=== PATIENT | male | born 1950 ===

== ENCOUNTER 2016-11-17 17:46 | Observation (INO) | payer OTHER ==
[2016-11-17 17:46] VITALS: BMI 26.8
--- NOTE | 2016-11-17 19:24 | C.PDOC ---
History Of Present Illness The patient, a 66 y/o male, presents to the ED for evaluation of dizziness which has been occurring in intermittent episodes for around 1 month. He describes his symptoms as lightheadedness that is associated with blurry vision. Patient notes his symptoms are worse during the afternoon. He denies fever, chills, LOC, chest pain, palpitation, upper/lower extremity numbness/ weakness. Chief Complaint (Nursing): Dizziness/Lightheaded History Per: Patient History/Exam Limitations: no limitations Onset/Duration Of Symptoms: Intermittent Episodes (around 1 month ) Current Symptoms Are (Timing): Still Present Fall Associated With With Symptoms: No Additional History Per: Patient Past Medical History Reviewed: Historical Data, Nursing Documentation, Vital Signs Vital Signs: Last Vital Signs Temp 98 F 11/17/16 18:03 Pulse 86 11/17/16 18:03 Resp 18 11/17/16 18:03 BP 168/88 H 11/17/16 18:03 Pulse Ox 99 11/17/16 22:38 - Medical History PMH: No Chronic Diseases Surgical History: No Surg Hx - [facility] Procedures COLONOSCOPY (02/14/14) Family History: States: Unknown Family Hx - Social History Hx Alcohol Use: Yes Hx Substance Use: No Review Of Systems Except As Marked, All Systems Reviewed And Found Negative. Constitutional: Negative for: Fever, Chills Eyes: Positive for: Vision Change (blurry vision ) Cardiovascular: Negative for: Chest Pain, Palpitations Neurological: Positive for: Headache, Other (+lightheadedness. no LOC ). Negative for: Weakness, Numbness Physical Exam - Physical Exam Appears: Non-toxic, No Acute Distress Skin: Normal Color, Warm, Dry Head: Atraumatic, Normacephalic, No Tenderness, No Swelling, No Abrasion, No Laceration Eye(s): bilateral: Normal Inspection, PERRL, EOMI Ear(s): Bilateral: Normal Nose: Normal, No Discharge Oral Mucosa: Moist Throat: Normal, No Erythema, No Exudate Neck: Normal ROM, Supple Chest: Symmetrical, No Deformity, No Tenderness Cardiovascular: Rhythm Regular, No Murmur Respiratory: Normal Breath Sounds, No Rales, No Rhonchi, No Wheezing Back: Normal Inspection, No Vertebral Tenderness, No Paraspinal Tenderness Extremity: Normal ROM, Capillary Refill (less than 2 seconds ) Neurological/Psych: Oriented x3, Normal Speech, Normal Cognition, Other (no focal deficits ) Gait: Steady ED Course And Treatment - Laboratory Results Result Diagrams: 11/17/16 19:21 11/17/16 19:21 ECG: Interpreted By Me ECG Rhythm: Sinus Rhythm ECG Interpretation: Normal, No Acute Changes Interpretation Of ECG: NSR, normal tracings. Rate From EC O2 Sat by Pulse Oximetry: 99 (on RA) Pulse Ox Interpretation: Normal - CT Scan/US CT Head Other Rad Studies (CT/US): Interpreted By Me, Read By Radiologist, Radiology Report Reviewed CT/US Interpretation: EXAM: CT Head Without Intravenous Contrast. CLINICAL HISTORY: 66 years old, male; Condition or disease; Headache. TECHNIQUE: Axial computed tomography images of the head/brain without intravenous contrast. This CT exam. was performed using one or more of the following dose reduction techniques: automated exposure. control, adjustment of the mA and/or kV according to patient size, and/or use of iterative. reconstruction technique. COMPARISON: No relevant prior studies available. FINDINGS: Brain : Periventricular and subcortical hypodensities are nonspecific and could reflect chronic. microvascular ischemic changes. Mild brain volume loss. No hemorrhage. Ventricles: Unremarkable. No ventriculomegaly. Bones/joints: Unremarkable. No acute fracture. Soft tissues: Unremarkable. Vasculature: Calcific atherosclerosis of the bilateral carotid siphon. Sinuses: Unremarkable as visualized. No acute sinusitis. Mastoid air cells: Unremarkable as visualized. No mastoid effusion. IMPRESSION: No acute findings. Progress Note: Labs, EKG, CT Head ordered and reviewed. - Physician Consult Information Time Consulting Physician Contacted: 21:30 Physician Contacted: Mario Marquez Outcome Of Conversation: admit to observation NIHSS Stroke Scale - Date/Time Evaluation Performed Date Performed: 11/17/16 When Was NIHSS Performed: Baseline - How Severe is the Stoke Level of Consciousness: 0=Alert LOC to Questions: 0=Both comments correct LOC to commands: 0=Obeys both correctly Best Gaze: 0=Normal Visual: 0=No visual loss Facial: 0=Normal Motor Arm - Left: 0=No drift Motor Arm - Right: 0=No drift Motor Leg - Left: 0=No drift Motor Leg - Right: 0=No drift Limb Ataxia: 0=Absent Sensory: 0=Normal Best Language: 0=No aphasia Dysarthia: 0=Normal articulation Extinction & Inattention (Neglect): 0=Normal, no object Score: 0 Severity Of Stroke: 0= No Stroke Disposition Discussed With : Mario Marquez Doctor Will See Patient In The: Hospital Counseled Patient/Family Regarding: Diagnosis - Disposition Disposition: HOSPITALIZED Disposition Time: 21:30 Condition: STABLE - POA Present On Arrival: None - Clinical Impression Clinical Impression: Near syncope, Near syncope - Scribe Statement The provider has reviewed the documentation as recorded by the Scribe (Carla Appiah) Provider Attestation: All medical record entries made by the Scribe were at my direction and personally dictated by me. I have reviewed the chart and agree that the record accurately reflects my personal performance of the history, physical exam, medical decision making, and the department course for this patient. I have also personally directed, reviewed, and agree with the discharge instructions and disposition.
[2016-11-17 19:29] LABS: BASO % 0.9 % (0.0-2.0); EOS # 0.2 K/uL (0.0-0.7); EOS % 4.2 % (0.0-4.0); LYMPH # 1.5 K/uL (1.0-4.3); LYMPH % 27.6 % (20.0-40.0); MEAN CELL VOLUME 86.7 fL (80.0-94.0); MEAN CORPUSCULAR HEMOGLOBIN 29.1 pg (27.0-31.0); MEAN CORPUSCULAR HGB CONC 33.5 g/dL (33.0-37.0); MEAN PLATELET VOLUME 8.5 fL (7.2-11.7); MONO # 0.4 K/uL (0.0-0.8); MONO % 8.2 % (0.0-10.0); RED CELL DISTRIBUTION WIDTH 12.9 % (11.5-14.5); WHITE BLOOD COUNT 5.3 K/uL (4.8-10.8)
[2016-11-17 19:40] LABS: CHLORIDE 95 mmol/L (98-107); POTASSIUM 3.6 mmol/L (3.6-5.2); SODIUM 135 mmol/L (132-148)
[2016-11-17 19:42] LABS: ALB/GLOB RATIO 1.5 (1.0-2.1); AST/SGOT 22 U/L (17-59); BILIRUBIN,TOTAL 0.6 mg/dL (0.2-1.3); CARBON DIOXIDE 26 mmol/L (22-30); GFR AFRICAN-AMERICAN > 60; TOTAL PROTEIN 6.8 g/dL (6.3-8.3)
[2016-11-17 19:43] LABS: ALKALINE PHOSPHATASE 46 U/L (38-126); ALT/SGPT 29 U/L (21-72); BLOOD UREA NITROGEN 15 mg/dL (9-20); CALCIUM 8.6 mg/dl (8.6-10.4); GLUCOSE,RANDOM 178 mg/dL (75-110)
[2016-11-18 01:42] VITALS: RESP 20
[2016-11-18] MEDS: (Novolog) Insulin Aspart, Recombinant 100 u/ml 10 ml vial SC SCH ×4 (08:45→22:28)
--- NOTE | 2016-11-18 09:12 | CT ---
PROCEDURE: CT HEAD WITHOUT CONTRAST. HISTORY: Headache COMPARISON: None available. TECHNIQUE: Axial computed tomography images were obtained through the head/brain without intravenous contrast. Radiation dose: Total exam DLP = seven hundred ninety-five mGy-cm. This CT exam was performed using one or more of the following dose reduction techniques: Automated exposure control, adjustment of the mA and/or kV according to patient size, and/or use of iterative reconstruction technique. FINDINGS: HEMORRHAGE: No intracranial hemorrhage. BRAIN: Mild brain volume loss. Scattered focal lucencies in the subcortical and periventricular white matter suggestive for chronic microvascular ischemic change. Right basal ganglia calcification. Focal hypodensity in the right frontal subcortical white matter is also suggestive for chronic microvascular ischemic change. VENTRICLES: Unremarkable. No hydrocephalus. CALVARIUM: Unremarkable. PARANASAL SINUSES: Unremarkable as visualized. No significant inflammatory changes. MASTOID AIR CELLS: Unremarkable as visualized. No inflammatory changes. OTHER FINDINGS: Calcific atherosclerosis of the bilateral carotid siphon. IMPRESSION: No acute intracranial abnormalities. If focal neurologic deficit persists, consider MRI. These findings were preliminarily reported at 8:23 p.m. on 11/17/[address] Jesse Mckenna from [facility].
[2016-11-18 09:37] LABS: THYROID STIMULATING HORMONE 3.49 mIU/L (0.46-4.68)
[2016-11-18] MEDS ORDERED: Tuberculin 5 Units/0.1 ml Inj ID ONE (10:00)
[2016-11-18] MEDS: Enoxaparin 40 mg Syringe SC SCH (12:30)
[2016-11-18] MEDS ORDERED: Gadodiamide 287 MG/ML VIAL (15ML) IV ONE (13:42)
--- NOTE | 2016-11-18 14:26 | CON ---
DATE: 11/18/2016 REASON FOR CONSULTATION: Recurrent dizziness. HISTORY OF PRESENT ILLNESS: The patient is a 66-year-old [place] male who has history of diabetes rg litus and is unaware of any prior cardiac history. The patient presents because of lightheadedness a ssociated with blurry vision. The patient denies any imbalance or falls. He denies any speech diffi culty. The patient is unaware of any prior cardiac history in the past. SOCIAL HISTORY: The patient is a nonsmoker. He is an occasional drinker. PAST MEDICAL HISTORY: History of diabetes mellitus for the past 3 years, history of hypertension. HOME MEDICATIONS: The patient at home is on metformin 500 mg twice a day, losartan/hydrochlorothiazi de 50/12.5 mg daily. CURRENT HOSPITAL MEDICATIONS: Include meclizine 12.5 mg t.i.d., Lovenox 40 mg subcutaneous once a da y, Plavix 75 mg once a day, thiamine 100 mg once a day. REVIEW OF SYSTEMS: No nausea, vomiting, fever or chills. No headache, no speech difficulty. No arm or leg numbness. PHYSICAL EXAMINATION: GENERAL: The patient is an elderly male who does not appear to be in any distress. VITAL SIGNS: Blood pressure is 160/89, heart rate 73, temperature 97.6, respiration 20. HEENT: Normocephalic. NECK: No JVD. CHEST: Clear. HEART: S1, S2 regular. ABDOMEN: Soft. EXTREMITIES: No edema. LABORATORY DATA: SMA-7: Sodium 135, potassium 3.6, chloride 95, CO2 of 26, glucose 78, BUN 15, crea tinine 1.1. One set of troponins is negative. TSH level is within normal limits. CBC: WBC 5.3, he moglobin 12.1, hematocrit 36, platelet count 245,000. DIAGNOSTIC STUDIES: Head CT scan without contrast was unremarkable. Brain MRI was performed; the re port is still pending. EKG revealed normal sinus rhythm at rate of 80. ASSESSMENT: 1. Recurrent dizziness. 2. Hypertension. 3. Diabetes mellitus. 4. History of ETOH abuse. RECOMMENDATIONS: Continue current subcutaneous Lovenox 40 mg once a day, meclizine 12.5 mg t.i.d., P lavix 75 mg once a day, thiamine 100 mg once a day. I will review the echocardiographic study perfor med today. Obtain a followup brain MRI as well as carotid Doppler. Grzegorz Whittington MD cc: [id number] TT: 11/18/2016 14:26:00 Confirmation # [id number] Dictation # [id number] dn
--- NOTE | 2016-11-18 15:43 | CARD ---
APPROVED REPORT EXAM: Two-dimensional and M-mode echocardiogram with Doppler and color Doppler. Other Information Quality : GoodRhythm : INDICATION Dizziness and Vertigo Syncope RISK FACTORS Hypertension Diabetes M-Mode DIMENSIONS RVDd2.93 (2.1-3.2cm)Left Atrium (MM)3.38 (2.5-4.0cm) IVSd0.88 (0.7-1.1cm)Aortic Root2.67 (2.2-3.7cm) LVDd3.71 (4.0-5.6cm)Aortic Cusp Exc.1.92 (1.5-2.0cm) PWd0.81 (0.7-1.1cm)FS (%) 46 % LVDs2.02 (2.0-3.8cm)LVEF (%)78 (>50%) Mitral Valve MV E Nmuyxcve74.2cm/sMV A Ohtbqeav92.0cm/sE/A ratio0.8 TDI E/Lateral E'0.0E/Medial E'0.0 Tricuspid Valve TR Peak Hewmqbgs505pg/sTR Peak Gr.35hwGfHDAX31wvYs LEFT VENTRICLE The left ventricle is normal size. There is borderline concentric left ventricular hypertrophy. The left ventricular function is normal. The left ventricular ejection fraction is within the normal range. There is normal LV segmental wall motion. Transmitral Doppler flow pattern is Grade I-abnormal relaxation pattern. RIGHT VENTRICLE The right ventricle is normal size. There is normal right ventricular wall thickness. The right ventricular systolic function is normal. ATRIA The left atrium size is normal. The right atrium size is normal. AORTIC VALVE The aortic valve is normal in structure. MITRAL VALVE The mitral valve is mildly thickened. Mitral regurgitation is trace. TRICUSPID VALVE There is no tricuspid valve regurgitation noted. PULMONIC VALVE There is trace pulmonic valvular regurgitation. GREAT VESSELS The aortic root is normal in size. PERICARDIAL EFFUSION There is a trace loculated anterior pericardial effusion. <Conclusion> The left ventricle is normal size. There is borderline concentric left ventricular hypertrophy. The left ventricular function is normal. The left ventricular ejection fraction is within the normal range. There is normal LV segmental wall motion. Transmitral Doppler flow pattern is Grade I-abnormal relaxation pattern.
--- NOTE | 2016-11-18 16:05 | MRI ---
PROCEDURE: MRI BRAIN WITH AND WITHOUT CONTRAST HISTORY: brain stem stroke Vs mass COMPARISON: Comparison is made to the previous study dated 01/28/2015 TECHNIQUE: Multiplanar, multisequence MR images of the brain were obtained with and without intravenous contrast enhancement. FINDINGS: HEMORRHAGE: None DWI: No evidence of an acute or early subacute infarction. BRAIN PARENCHYMA: No mass,mass effect or edema. Moderate white matter changes are again suggestive of chronic microvascular ischemic disease. Mild atrophy is also noted. ENHANCEMENT: No abnormal intracranial enhancement. VENTRICLES: Unremarkable. No hydrocephalus. CRANIUM: Unremarkable. ORBITS: Grossly unremarkable. PARANASAL SINUSES/MASTOIDS: Clear VASCULAR SYSTEM: Skull base flow voids intact. OTHER FINDINGS: None . IMPRESSION: No evidence of acute or subacute infarct. No evidence of enhancing mass lesion mass effect or midline shift. Re- demonstration of moderate chronic microvascular white matter ischemic disease.
[2016-11-18 16:21] LABS: ALB/GLOB RATIO 1.6 (1.0-2.1); TOTAL PROTEIN 6.7 g/dL (6.3-8.3)
--- NOTE | 2016-11-18 16:43 | CARD ---
APPROVED REPORT EKG Measurement Heart [id number] <Conclusion> Normal sinus rhythm Normal ECG
--- NOTE | 2016-11-18 21:59 | VASCLAB ---
PROCEDURE: HISTORY: R?O Stenosis COMPARISON: None available. TECHNIQUE: Grayscale and duplex Doppler evaluation of the cervical carotid and vertebral arteries were performed. The common carotid, carotid bifurcations and cervical Internal Carotid Artery (ICA) and proximal External Carotid Artery (ECA) were evaluated. The vertebral arteries were evaluated for gross patency and flow direction. Report prepared by Martin Garrido, BS, RVT FINDINGS: RIGHT CAROTID ARTERIES: 1. Common Carotid Artery: No significant focal plaque formation of the right common carotid artery. Maximum Peak Systolic velocity: 72 cm/sec: End-diastolic velocity 12 cm/sec. 2. Carotid Bifurcation: Mild heterogeneous plaque formation. Maximum Peak Systolic velocity: 65 cm/sec: End-diastolic velocity 12 cm/sec. 3. Internal Carotid Artery: Minimal eccentric heterogeneous plaque. 3.1. Proximal Segment: Peak systolic velocity 70 cm/sec: End-diastolic velocity 18 cm/sec - % stenosis 0-15% 3.2. Middle Segment: Peak systolic velocity 129 cm/sec: End-diastolic velocity 30 cm/sec - % stenosis 0-15% 3.3. Distal Segment: Peak systolic velocity 107 cm/sec: End-diastolic velocity 33 cm/sec - % stenosis 0-15% 4. External Carotid Artery: No significant focal plaque formation. Peak systolic velocity 161 cm/sec 5. ICA/CCA Ratio: 1.8 LEFT CAROTID ARTERIES: 1. Common Carotid Artery: No significant focal plaque formation of the left common carotid artery. Maximum Peak Systolic velocity: 90 cm/sec: End-diastolic velocity 16 cm/sec. 2. Carotid Bifurcation: Minimal calcific plaque formation. Maximum Peak Systolic velocity: 93 cm/sec: End-diastolic velocity 16 cm/sec. 3. Internal Carotid Artery: Mild heterogeneous plaque. Tortuous course. 3.1. Proximal Segment: Peak systolic velocity 85 cm/sec: End-diastolic velocity 20 cm/sec - % stenosis 0-15% 3.2. Middle Segment: Peak systolic velocity 56 cm/sec: End-diastolic velocity 14 cm/sec - % stenosis 0-15% 3.3. Distal Segment: Peak systolic velocity 103 cm/sec: End-diastolic velocity 69 cm/sec - % stenosis 0-15% 4. External Carotid Artery: No significant focal plaque formation. Peak systolic velocity 143 cm/sec 5. ICA/CCA Ratio: 1.1 VERTEBRAL ARTERIES: 1. Right Vertebral Artery: The right vertebral artery flow direction is antegrade. 2. Left Vertebral Artery: The left vertebral artery flow direction is antegrade. OTHER FINDINGS: 1. Right Brachial Blood pressure: 148 mmHg. 2. Left Brachial Blood pressure: 148 mmHg. IMPRESSION: RIGHT: Duplex scan does not suggest hemodynamically significant stenosis of the right extracranial carotid arteries. LEFT: Duplex scan does not suggest hemodynamically significant stenosis of the left extracranial carotid arteries.
[2016-11-18] MEDS ORDERED: Latanoprost 2.5 ml Opht Soln OU SCH (22:00)
--- NOTE | 2016-11-19 01:33 | CP.PCM.HP ---
History of Present Illness - History of Present Illness History of Present Illness: The patient, a 66 y/o male, presents to the ED for evaluation of dizziness which has been occurring in intermittent episodes for around 1 month. He describes his symptoms as lightheadedness that is associated with blurry vision. Patient notes his symptoms are worse during the afternoon. He denies fever, chills, LOC, chest pain, palpitation, upper/lower extremity numbness/ weakness. Present on Admission - Present on Admission Any Indicators Present on Admission: No Past Patient History - Past Medical History & Family History Past Medical History?: Yes - Past Social History Smoking Status: Never Smoked - CARDIAC Hx Cardiac Disorders: No - PULMONARY Hx Respiratory Disorders: No - NEUROLOGICAL Hx Neurological Disorder: No - HEENT Hx HEENT Problems: Yes Hx Glaucoma: Yes - RENAL Hx Chronic Kidney Disease: No - ENDOCRINE/METABOLIC Hx Endocrine Disorders: Yes Hx Diabetes Mellitus Type 1: Yes - HEMATOLOGICAL/ONCOLOGICAL Hx Blood Disorders: No - INTEGUMENTARY Hx Dermatological Problems: No - MUSCULOSKELETAL/RHEUMATOLOGICAL Hx Musculoskeletal Disorders: No Hx Falls: No - GASTROINTESTINAL Hx Gastrointestinal Disorders: No - GENITOURINARY/GYNECOLOGICAL Hx Genitourinary Disorders: No - PSYCHIATRIC Hx Substance Use: No - SURGICAL HISTORY Hx Surgeries: Yes Hx Musculoskeletal Surgery: Yes (1985 DISLOCATED LEFT HIP) - ANESTHESIA Hx Anesthesia: Yes Hx Anesthesia Reactions: No Hx Malignant Hyperthermia: No Meds Home Medications: Home Medication List Medication Instructions Recorded Confirmed Type Meclizine [Antivert] 12.5 mg PO TID PRN #30 tab 11/19/16 Rx Allergies/Adverse Reactions: Allergies Allergy/AdvReac Type Severity Reaction Status Date / Time No Known Allergies Allergy Verified 02/14/14 10:40 Results - Vital Signs Recent Vital Signs: Last Vital Signs Temp 98.1 F 11/18/16 23:45 Pulse 84 11/18/16 23:45 Resp 20 11/18/16 23:45 BP 120/74 11/18/16 23:45 Pulse Ox 97 11/18/16 23:45 - Labs Result Diagrams: 11/17/16 19:21 11/17/16 19:21 Labs: Laboratory Results - last 24 hr 11/18/16 11/18/16 11/18/16 06:43 08:42 12:38 ESR POC Glucose (mg/dL) 124 H 164 H Hemoglobin A1c Total Bilirubin Direct Bilirubin AST ALT Alkaline Phosphatase Ammonia Total Creatine Kinase 39 L CK-MB (Mass) 0.37 Troponin I, Quant < 0.0120 Total Protein Albumin Globulin Albumin/Globulin Ratio Triglycerides Cholesterol LDL Cholesterol Direct HDL Cholesterol Vitamin B12 Free T4 Total T3 TSH 3rd Generation 3.49 Prolactin RPR 11/18/16 11/18/16 11/18/16 15:51 15:51 15:51 ESR 9 POC Glucose (mg/dL) Hemoglobin A1c 6.2 Total Bilirubin 0.0 L Direct Bilirubin 0.0 AST 21 ALT 34 Alkaline Phosphatase 54 Ammonia Total Creatine Kinase CK-MB (Mass) Troponin I, Quant Total Protein 6.7 Albumin 4.2 Globulin 2.6 Albumin/Globulin Ratio 1.6 Triglycerides 382 H Cholesterol 143 LDL Cholesterol Direct 70 HDL Cholesterol 35 Vitamin B12 306 Free T4 Total T3 1.35 L TSH 3rd Generation Prolactin 9.0 RPR 11/18/16 11/18/16 11/18/16 15:51 15:51 16:49 ESR POC Glucose (mg/dL) 158 H Hemoglobin A1c Total Bilirubin Direct Bilirubin AST ALT Alkaline Phosphatase Ammonia < 9 L Total Creatine Kinase CK-MB (Mass) Troponin I, Quant Total Protein Albumin Globulin Albumin/Globulin Ratio Triglycerides Cholesterol LDL Cholesterol Direct HDL Cholesterol Vitamin B12 Free T4 Total T3 TSH 3rd Generation Prolactin RPR Nonreactive 11/18/16 17:25 ESR POC Glucose (mg/dL) Hemoglobin A1c Total Bilirubin Direct Bilirubin AST ALT Alkaline Phosphatase Ammonia Total Creatine Kinase CK-MB (Mass) Troponin I, Quant Total Protein Albumin Globulin Albumin/Globulin Ratio Triglycerides Cholesterol LDL Cholesterol Direct HDL Cholesterol Vitamin B12 Free T4 1.32 Total T3 TSH 3rd Generation Prolactin RPR
[2016-11-19] MEDS: (Novolog) Insulin Aspart, Recombinant 100 u/ml 10 ml vial SC SCH ×3 (08:30→16:25)
--- NOTE | 2016-11-19 08:44 | RAD ---
Chest x-ray two views History: Cough. Comparison: None available. Findings: Biapical pleural thickening with upper lobe granulomatous changes. Hyperinflation suggestive for COPD and or emphysematous changes. Bilateral hilar prominence. Cardiomegaly. Calcification at the aortic knob. Degenerative changes in the spine and shoulders. Impression: Chronic changes.
--- NOTE | 2016-11-19 09:11 | CON ---
DATE: 11/19/2016 ATTENDING PHYSICIAN: Mario Marquez MD NEUROLOGICAL CONSULTATION: For dizziness. CHIEF COMPLAINT: The patient was brought into [facility] for a history of recurrent dizziness. From neurological point of view, I was called in to evaluate him for further management. HISTORY OF PRESENTING ILLNESS: The patient is a 66-year-old, right-handed, retired male [facility] with recurrent episode of dizziness. No history of fall. No history of loss of consciousness, no history of involuntary movements. No history of headache, visual or bulbar dysfunction. PAST MEDICAL HISTORY: Hypertension, dyslipidemia, history of prostate problem in the past. PERSONAL HISTORY: Denies smoking. Social use of alcohol. REVIEW OF SYSTEMS: As per H and P. MEDICATIONS: Meclizine, insulin, clopidogrel, thiamine and Xalatan ophthalmic drops. PHYSICAL EXAMINATION: VITAL SIGNS: Blood pressure 120/74, mean arterial pressure of 89, respiratory rate 16, temperature a febrile. NECK: Supple. No carotid bruit. HEART SOUNDS: Regular. CHEST: Fair air entry. EXTREMITIES: No edema in legs. NEUROLOGIC: The patient is awake, alert, oriented to person, place, and time. Speech is clear. Nam ing, repetition, fluency, comprehension all within normal. CRANIAL NERVES: Visual field intact. Pupils reactive to light. Extraocular movements normal. No ny stagmus. No facial sensory deficit, no facial asymmetry. Hearing is normal. Tongue is midline. Go od gag. MOTOR: On outstretched hand with eyes closed, no drift noted. Power is symmetric on either side. DEEP TENDON REFLEXES: Biceps, brachioradialis, triceps 1+ on either side. Both knees are absent, skylar th ankles are absent. Plantars are downgoing. 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 GAIT: Normal. COORDINATION: Dptclb-bwth-vattgc test is intact. CONCLUSION: Upon reviewing his history and neurological examination, the patient is presenting with nonfocal, no long tract sign. However, he is presenting with bilateral dissymmetric sensorimotor dayne ropathy secondary to his diabetes mellitus. The patient can be treated symptomatically for his dizziness at present. WORKUP: ESR 9. Glucose 143. Hemoglobin A1c 6.2. Liver functions normal. Ammonia is less than 9. RPR not reactive. TSH 1.35. B12 306. Cholesterol 143, LDL 70, HDL 35. MRI of the brain: No acut e pathologies noted. Carotid Doppler: No acute stenosis. As recommended, patient can continue Plavix as well as antihypertensive medication. The patient can be followed as outpatient. Bennie Larios MD cc: [id number] TT: 11/19/2016 09:11:36 Confirmation # [id number] Dictation # [id number]
[2016-11-19] MEDS: Enoxaparin 40 mg Syringe SC SCH (09:19)
[2016-11-19 15:52] VITALS: BP 153/63; PULSE 87; TEMP 97.9; O2SAT 96
--- NOTE | 2016-11-19 16:21 | PN ---
DATE: 11/19/2016 SUBJECTIVE: The patient denies any dizziness or palpitation. No reported arrhythmia. PHYSICAL EXAMINATION: VITAL SIGNS: Blood pressure 153/63, heart rate 87, temperature 97.9 and respirations 20. HEENT: Normocephalic. NECK: No JVD. CHEST: Clear. HEART: S1, S2 regular. LABORATORY DATA: Today's glucose levels are 143 and 173. RPR is nonreactive. Carotid Doppler does not suggest hemodynamically significant stenosis bilaterally. Brain MRI: No evidence of acute or jose bacute infarct. Echocardiographic study revealed borderline concentric LVH with normal systolic func tion and normal segmental wall motion and grade I abnormal relaxation pattern. ASSESSMENT: 1. Recurrent dizziness. 2. Uncontrolled diabetes mellitus. 3. Ethanol abuse. RECOMMENDATIONS: Continue current Plavix 75 mg once a day, Lovenox 40 mg once a day and thiamine 100 mg once a day. Consider 24-hour Holter monitor study as an outpatient. Grzegorz Whittington MD cc: [id number] TT: 11/19/2016 16:20:28 Confirmation # [id number] Dictation # [id number]
[2016-11-20] MEDS ORDERED: Pneumococcal 23-Valent Vaccine IM ONE (10:00)
--- NOTE | 2016-11-20 15:58 | CP.PCM.DIS ---
Provider - Provider Date of Admission: 11/17/16 21:32 Attending physician: Mario Marquez MD Time Spent in preparation of Discharge (in minutes): 30 Hospital Course - Lab Results Lab Results: Most Recent Lab Values WBC 5.3 K/uL (4.8-10.8) 11/17/16 19:21 RBC 4.15 Mil/uL (4.40-5.90) L 11/17/16 19:21 Hgb 12.1 g/dL (12.0-18.0) 11/17/16 19:21 Hct 36.0 % (35.0-51.0) 11/17/16 19: MCV 86.7 fL (80.0-94.0) 11/17/16 19: MCH 29.1 pg (27.0-31.0) 11/17/16 19: MCHC 33.5 g/dL (33.0-37.0) 11/17/16 19: RDW 12.9 % (11.5-14.5) 11/17/16 19: Plt Count 245 K/uL (130-400) 11/17/16 19:21 MPV 8.5 fL (7.2-11.7) 11/17/16 19:21 Neut % (Auto) 59.1 % (50.0-75.0) 11/17/16 19:21 Lymph % (Auto) 27.6 % (20.0-40.0) 11/17/16 19:21 [place] % (Auto) 8.2 % (0.0-10.0) 11/17/16 19: Eos % (Auto) 4.2 % (0.0-4.0) H 11/17/16 19:21 Baso % (Auto) 0.9 % (0.0-2.0) 11/17/16 19: Neut # 3.2 K/uL (1.8-7.0) 11/17/16 19: Lymph # 1.5 K/uL (1.0-4.3) 11/17/16 19:21 [place] # 0.4 K/uL (0.0-0.8) 11/17/16 19:21 Eos # 0.2 K/uL (0.0-0.7) 11/17/16 19:21 Baso # 0.0 K/uL (0.0-0.2) 11/17/16 19:21 ESR 9 mm/hr (0-15) 11/18/16 15:51 Sodium 135 mmol/L (132-148) 11/17/16 19:21 Potassium 3.6 mmol/L (3.6-5.2) 11/17/16 19:21 Chloride 95 mmol/L (98-107) L 11/17/16 19:21 Carbon Dioxide 26 mmol/L (22-30) 11/17/16 19:21 Anion Gap 17 (10-20) 11/17/16 19:21 BUN 15 mg/dL (9-20) 11/17/16 19:21 Creatinine 1.1 MG/DL (0.8-1.5) 11/17/16 19:21 Est GFR ( Amer) > 60 11/17/16 19:21 Est GFR (Non-Af Amer) > 60 11/17/16 19:21 POC Glucose (mg/dL) 121 mg/dL (65-110) H 11/19/16 16:17 Random Glucose 178 mg/dL (75-110) H 11/17/16 19:21 Hemoglobin A1c 6.2 % (4.2-6.5) 11/18/16 15:51 Calcium 8.6 mg/dl (8.6-10.4) 11/17/16 19:21 Total Bilirubin 0.0 mg/dL (0.2-1.3) L 11/18/16 15:51 Direct Bilirubin 0.0 mg/dL (0.0-0.4) 11/18/16 15:51 AST 21 U/L (17-59) 11/18/16 15:51 ALT 34 U/L (21-72) 11/18/16 15:51 Alkaline Phosphatase 54 U/L (38-126) 11/18/16 15:51 Ammonia < 9 umol/L (9-33) L 11/18/16 15:51 Total Creatine Kinase 39 U/L (55-170) L 11/18/16 08:42 CK-MB (Mass) 0.37 ng/mL (0.0-3.38) 11/18/16 08:42 Troponin I, Quant < 0.0120 ng/mL (0.00-0.120) 11/18/16 08:42 Total Protein 6.7 g/dL (6.3-8.3) 11/18/16 15:51 Albumin 4.2 g/dL (3.5-5.0) 11/18/16 15:51 Globulin 2.6 gm/dL (2.2-3.9) 11/18/16 15:51 Albumin/Globulin Ratio 1.6 (1.0-2.1) 11/18/16 15:51 Triglycerides 382 mg/dL (0-149) H 11/18/16 15:51 Cholesterol 143 mg/dL (0-199) 11/18/16 15:51 LDL Cholesterol Direct 70 mg/dL (0-129) 11/18/16 15:51 HDL Cholesterol 35 mg/dL (30-70) 11/18/16 15:51 Vitamin B12 306 pg/mL (239-931) 11/18/16 15:51 Free T4 1.32 ng/dL (0.78-2.19) 11/18/16 17:25 Total T3 1.35 nmol/L (1.49-2.60) L 11/18/16 15:51 TSH 3rd Generation 3.49 mIU/L (0.46-4.68) 11/18/16 08:42 Prolactin 9.0 ng/mL (3.7-17.9) 11/18/16 15:51 RPR Nonreactive (NONREACTIVE) 11/18/16 15:51 - Hospital Course Hospital Course: Pt seen and examined, cardiology evaluated, is clear for discharge, labs done and reviewed negative Discharge Exam - Eye Exam Eye Exam: EOMI, Normal appearance, PERRL Pupil Exam: NORMAL ACCOMODATION, PERRL - ENT Exam ENT Exam: Mucous Membranes Moist - Respiratory Exam Respiratory Exam: Clear to PA & Lateral, NORMAL BREATHING PATTERN - Cardiovascular Exam Cardiovascular Exam: REGULAR RHYTHM, +S1, +S2 - GI/Abdominal Exam GI & Abdominal Exam: Normal Bowel Sounds Discharge Plan - Discharge Medications Prescriptions: Meclizine [Antivert] 12.5 mg PO TID PRN #30 tab PRN Reason: Dizziness - Follow Up Plan Condition: STABLE Disposition: HOME/ ROUTINE Instructions: Meclizine (By mouth), Syncope (DC), Near Syncope (ED) Referrals: Mario Marquez MD [Staff Provider] -
--- NOTE | 2016-11-21 10:06 | EEG ---
DATE: 11/18/2016 This is a 16-channel electroencephalogram of awake and drowsy adult. During the study, photic stimulation was performed. Hyperventilation was not performed. The resting electroencephalogram consists of 20-30 microvolt, 9-12 Hz alpha activity seen at parietal and occipital leads. Anteriorly fast activity superimposed with 2-3 Hz delta activity seen. Intermittent movement artifact contaminated the background rhythm. However, the background alpha activity is well maintained throughout the study. The photic stimulation did not evoke driving response noted at 2-20 Hz. The EKG lead shows normal sinus rhythm throughout the recording time. IMPRESSION: This is a normal electroencephalogram of awake and drowsy adult. During the study, neither electroencephalographic paroxysmal activities nor focal slowing noted. Bennie Larios MD cc: [id number] TT: 11/21/2016 10:05:16 Confirmation # [id number] Dictation # [id number] MTDD
[2016-11-23 14:24] LABS: TSI <89 % baseline (<140)
== END 2016-11-19 18:10 | disposition home or self-care (01) ==
LOC: C.ER 17:46 → C.9E 21:32 → C.5T 22:22
PROVIDERS: ADMIT Internal Medicine; ATTEND Internal Medicine
DX: R55 Syncope and collapse (principal); H53.8 Other visual disturbances; I10 Essential (primary) hypertension; E78.5 Hyperlipidemia, unspecified
CPT/HCPCS: 36415; 70450; 70553; 71020; 80053; 80061; 80076; 82140; 82607; 82948; 83036; 84146; 84439; 84443; 84445; 84480; 84484; 85025; 85651; 86592; 93005; 93306; 93880; 95812; 96372; 97116; 97162; 99285; A9579; G0378; G8978; G8979; G8980; J1650

== ENCOUNTER 2017-09-16 08:11 | Inpatient (IN) | payer OTHER ==
[2017-09-16 08:11] VITALS: BMI 26.8
[2017-09-16] MEDS ORDERED: Morphine 4 MG/ML VIAL ONE (09:20)
--- NOTE | 2017-09-16 09:32 | RAD ---
PROCEDURE: Left Wrist Radiographs. HISTORY: fall COMPARISON: None. FINDINGS: BONES: There is an acute transverse impacted nondisplaced fracture in the distal radius without significant angulation. Bone alignment is normal. There is periarticular bone demineralization. JOINTS: The proximal and distal carpal rows are maintained. No dislocation. SOFT TISSUES: There is moderate dorsal soft tissue swelling. OTHER FINDINGS: None. IMPRESSION: Acute transverse impacted nondisplaced fracture in the distal radius with moderate dorsal soft tissue swelling.
--- NOTE | 2017-09-16 09:37 | RAD ---
PROCEDURE: CHEST RADIOGRAPH, 1 VIEW HISTORY: fall COMPARISON: 915. FINDINGS: LUNGS: The lungs are well inflated and clear. PLEURA: No pneumothorax or pleural fluid seen. CARDIOVASCULAR: The heart is normal in size. Atherosclerotic aortic arch calcifications are present. OSSEOUS STRUCTURES: Within normal limits for the patient's age. VISUALIZED UPPER ABDOMEN: Normal. OTHER FINDINGS: A curvilinear calcification overlying the right apex may represent soft tissue calcification or artifact. IMPRESSION: No acute findings.
[2017-09-16] MEDS ORDERED: Sodium Chloride 0.9% 1,000 ML IV ONE (09:39)
[2017-09-16] MEDS ORDERED: Sodium Chloride 0.9% 1,000 ML ONE (09:43)
--- NOTE | 2017-09-16 09:43 | C.PDOC ---
- HPI Time Seen by Provider: 09/16/17 08:41 Chief Complaint (Nursing): Trauma Past Medical History Vital Signs: Last Vital Signs Temp 97.9 F 09/16/17 08:35 Pulse 87 09/16/17 08:35 Resp 18 09/16/17 08:35 BP 172/101 H 09/16/17 08:35 Pulse Ox 98 09/16/17 08:35 - Medical History PMH: Denies: Chronic Kidney Disease - [facility] Procedures COLONOSCOPY (02/14/14) Family History: States: Unknown Family Hx - Social History Hx Alcohol Use: Yes Hx Substance Use: No - Immunization History Hx Tetanus Toxoid Vaccination: (unk) Hx Influenza Vaccination: Yes (2016) Hx Pneumococcal Vaccination: (unk) ED Course And Treatment O2 Sat by Pulse Oximetry: 98 Disposition Discussed With : Mario Marquez Doctor Will See Patient In The: Hospital Counseled Patient/Family Regarding: Studies Performed, Diagnosis - Disposition Referrals: Walker Elmore MD [Staff Provider] - Disposition: HOSPITALIZED Disposition Time: 09:42 Condition: FAIR - Clinical Impression Clinical Impression: Fracture of bone
--- NOTE | 2017-09-16 09:43 | C.PDOC ---
History Of Present Illness 67 y/o male presents to the emergency room for evaluation s/p fall. States he slipped and fell this morning, landing on left side and injuring the left wrist and hip. Patient is unable to walk secondary to pain. No LOC or head injury. PMD: Mario Marquez - [facility] Time Seen by Provider: 09/16/17 08:41 Chief Complaint (Nursing): Trauma History Per: Patient History/Exam Limitations: no limitations Onset/Duration Of Symptoms: Mins Injury Occurred (Timing): Just Before Arrival Location Of Injury: Left: Hip, Wrist - Fall Fall:Prior To Injury: Slipped Past Medical History Reviewed: Historical Data, Nursing Documentation, Vital Signs Vital Signs: Last Vital Signs Temp 98.7 F 09/19/17 08:13 Pulse 95 H 09/19/17 08:13 Resp 18 09/19/17 08:13 BP 146/72 09/19/17 08:13 Pulse Ox 96 09/19/17 08:13 - Medical History PMH: Diabetes Denies: Chronic Kidney Disease - [facility] Procedures COLONOSCOPY (02/14/14) Family History: States: Unknown Family Hx - Social History Hx Tobacco Use: No Hx Alcohol Use: Yes Hx Substance Use: No - Immunization History Hx Tetanus Toxoid Vaccination: (unk) Hx Influenza Vaccination: Yes (2016) Hx Pneumococcal Vaccination: (unk) Review Of Systems Except As Marked, All Systems Reviewed And Found Negative. Musculoskeletal: Positive for: Arm Pain (wrist), Leg Pain (hip) Neurological: Negative for: Dizziness, Other (LOC) Physical Exam - Physical Exam Appears: Non-toxic, No Acute Distress Skin: Normal Color, Warm, Dry Head: Atraumatic, Normacephalic Eye(s): bilateral: Normal Inspection, PERRL, EOMI Nose: Normal Oral Mucosa: Moist Neck: Normal ROM, No Midline Cervical Tenderness, Supple Chest: Symmetrical Cardiovascular: Rhythm Regular, No Murmur Respiratory: Normal Breath Sounds, No Accessory Muscle Use Gastrointestinal/Abdominal: Normal Exam, Soft, No Tenderness Back: Normal Inspection, No CVA Tenderness, No Vertebral Tenderness Extremity: Tenderness (to left wrist and left hip), Deformity (+ deformity at left wrist), Other (Decreased ROM of hip secondary to pain. neurovascularly intact) Neurological/Psych: Oriented x3, Normal Speech ED Course And Treatment - Laboratory Results Result Diagrams: 09/17/17 07:15 09/17/17 07:15 ECG: Interpreted By Me, Viewed By Me ECG Rhythm: Sinus Rhythm (at 74 bpm with normal intervals, normal axis. No ST or T wave abnormalities) ECG Interpretation: Normal O2 Sat by Pulse Oximetry: 98 (RA) Pulse Ox Interpretation: Normal - Radiology CXR: Viewed By Me, Read By Radiologist CXR Interpretation: Yes: No Acute Disease - Other Rad x-ray left wrist X-Ray: Viewed By Me, Read By Radiologist Interpretation: FINDINGS: BONES: There is an acute transverse impacted nondisplaced fracture in the distal radius without significant angulation. Bone alignment is normal. There is periarticular bone demineralization. JOINTS : The proximal and distal carpal rows are maintained. No dislocation. SOFT TISSUES: There is moderate dorsal soft tissue swelling. OTHER FINDINGS: None. IMPRESSION: Acute transverse impacted nondisplaced fracture in the distal radius with moderate dorsal soft tissue swelling. x-ray left hip/pelvis X-Ray: Viewed By Me, Read By Radiologist Interpretation: FINDINGS: BONES: There is an acute comminuted displaced left intertrochanteric fracture with 2.5 cm medial displacement of the lesser trochanter and 1.1 cm distraction of fracture fragments. The pelvic ring is intact. There is mild diffuse bone demineralization. 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 SOFT TISSUES: Normal. OTHER FINDINGS: None. IMPRESSION: Acute comminuted displaced left intertrochanteric fracture with 2.5 cm medial displacement of the lesser trochanter and 1.1 cm distraction of fracture fragments. Medical Decision Making Medical Decision Making: Initial Impression: Wrist and hip injury Time: 8:53 Initial Plan: * EKG * CMP * CBC * PTT * Prothrombin time * Chest x-ray * x-ray left wrist * x-ray left left hip with pelvis * Tylenol 975 mg PO * Morphine 4 mg IVP X-ray: (+) fracture. 9:[address] Marquez, patient will be admitted under his service for hip and wrist fracture. Dr Elmore, ortho on-call, will consult. Disposition Counseled Patient/Family Regarding: Studies Performed, Diagnosis - Disposition Disposition: HOSPITALIZED Disposition Time: 09:40 Condition: FAIR - POA Present On Arrival: Falls Or Trauma - Clinical Impression Clinical Impression: Fracture of bone - Scribe Statement The provider has reviewed the documentation as recorded by the Scribe Denia Fransico Provider Attestation: All medical record entries made by the Farshad were at my direction and personally dictated by me. I have reviewed the chart and agree that the record accurately reflects my personal performance of the history, physical exam, medical decision making, and the department course for this patient. I have also personally directed, reviewed, and agree with the discharge instructions and disposition. Decision To Admit - Pt Status Changed To: Hospital Disposition Of: Inpatient - Admit Certification Admit to Inpatient:: After my assessment, the patient will require hospitalization for at least two midnights. This is because of the severity of symptoms shown, intensity of services needed, and/or the medical risk in this patient being treated as an outpatient. - InPatient: Physician Admission Certification: I certify that this patient requires 2 or more midnights of care for the following reason:: patient admitted to medical surgical floor - . Bed Request Type: Regular Patient Diagnosis: Fracture of bone
[2017-09-16 09:49] LABS: BASO # 0.1 K/uL (0.0-0.2); BASO % 1.1 % (0.0-2.0); EOS # 0.1 K/uL (0.0-0.7); EOS % 2.2 % (0.0-4.0); HEMOGLOBIN 12.1 g/dL (12.0-18.0); LYMPH # 1.3 K/uL (1.0-4.3); LYMPH % 26.3 % (20.0-40.0); MEAN CELL VOLUME 86.8 fL (80.0-94.0); MEAN CORPUSCULAR HGB CONC 34.6 g/dL (33.0-37.0); MEAN PLATELET VOLUME 8.3 fL (7.2-11.7); MONO # 0.3 K/uL (0.0-0.8); MONO % 6.8 % (0.0-10.0); NEUT # 3.2 K/uL (1.8-7.0); NEUT % 63.6 % (50.0-75.0); RBC 4.03 Mil/uL (4.40-5.90); RED CELL DISTRIBUTION WIDTH 12.8 % (11.5-14.5)
[2017-09-16 09:52] LABS: PROTHROMBIN TIME 11.2 SECONDS (9.7-12.2)
[2017-09-16 09:59] LABS: ALB/GLOB RATIO 1.4 (1.0-2.1); ALBUMIN 3.6 g/dL (3.5-5.0); ALT/SGPT 38 U/L (21-72); AST/SGOT 23 U/L (17-59); BLOOD UREA NITROGEN 16 mg/dL (9-20); CALCIUM 8.2 mg/dl (8.6-10.4); GFR AFRICAN-AMERICAN > 60; GFR NON-AFRICAN AMERICAN > 60
--- NOTE | 2017-09-16 10:14 | RAD ---
PROCEDURE: Left Hip X-ray Radiographs. HISTORY: fall COMPARISON: None. FINDINGS: BONES: There is an acute comminuted displaced left intertrochanteric fracture with 2.5 cm medial displacement of the lesser trochanter and 1.1 cm distraction of fracture fragments. The pelvic ring is intact. There is mild diffuse bone demineralization. 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 SOFT TISSUES: Normal. OTHER FINDINGS: None. IMPRESSION: Acute comminuted displaced left intertrochanteric fracture with 2.5 cm medial displacement of the lesser trochanter and 1.1 cm distraction of fracture fragments.
--- NOTE | 2017-09-16 12:06 | CP.PCM.PN ---
Subjective - Date & Time of Evaluation Date of Evaluation: 09/16/17 Time of Evaluation: 12:02 - Subjective Subjective: ALL ADMITTING ORDERS DISCUSSED AND ORDERED IN COLLABORATION W DR. SANTIZO. ORTHO ALREADY CALLED ON CONSULT FOR FRACTURES. PT AND OT EVAL WILL SYLVIA ORDERED AT A LATER DATE AFTER PT IS SEEN AND EVAL'D BY ORTHO TEAM. NO FURTHER ORDERS. Objective - Vital Signs/Intake and Output Vital Signs (last 24 hours): Temp Pulse Resp BP Pulse Ox 97.6 F 78 18 146/81 98 09/16/17 11:20 09/16/17 11:20 09/16/17 11:20 09/16/17 11:20 09/16/17 12:01 - Medications Medications: Current Medications Finasteride (Proscar) 5 mg PO DAILY BASIL Home Med (Dorzolamide Hcl/Timolol Maleat [Dorzolamide-Timolol Eye Drops]) 1 drop BOTHEYES BID BASIL Latanoprost (Xalatan Opht) 0 ml OU HS BASIL Metformin HCl (Glucophage) 500 mg PO DAILY BASIL Oxycodone/Acetaminophen (Percocet 5/325 Mg Tab) 1 tab PO Q4H PRN PRN Reason: Pain, severe (8-10) Stop: 09/19/17 11:51 - Labs Labs: 09/16/17 09:40 09/16/17 09:40 PT 11.2 SECONDS (9.7-12.2) 09/16/17 09:40 INR 1.0 09/16/17 09:40 APTT 30 SECONDS (21-34) 09/16/17 09:40
[2017-09-16] MEDS: (Novolog) Insulin Aspart, Recombinant 100 u/ml 10 ml vial SC SCH ×2 (17:06→21:33)
[2017-09-16] MEDS ORDERED: TIMOLOL MALEAT BOTHEYES SCH (18:00)
[2017-09-16] MEDS ORDERED: DORZOLAMIDE HCL BOTHEYES SCH (18:00)
[2017-09-16] MEDS: Oxycodone/Acetaminophen 5/325 mg Tab PO PRN (18:58)
[2017-09-16] MEDS ORDERED: Latanoprost 2.5 ml Opht Soln OU SCH (22:00)
--- NOTE | 2017-09-16 23:16 | CP.PCM.HP ---
History of Present Illness - History of Present Illness History of Present Illness: CC: Fall resulting in left hip and left wrist pain HPI; 67 y/o male with h/o type 2 DM, HTN, BPH presents to the emergency room for evaluation s/p fall on street. States he slipped and fell this morning , landing on left side and injuring the left wrist and hip. Patient is unable to walk secondary to pain. No LOC or head injury.pt has left hip and left wrist fracture Present on Admission - Present on Admission Any Indicators Present on Admission: Yes Review of Systems - Review of Systems Systems not reviewed;Unavailable: Acuity of Condition - Constitutional Constitutional: Malaise - EENT Ears: absent: As Per HPI, Decreased Hearing, Ear Discharge, Ear Pain, Tinnitus, Abnormal Hearing, Disequilibrium, Dizziness, Other Nose/Mouth/Throat: absent: As Per HPI, Epistaxis, Nasal Congestion, Nasal Discharge, Nasal Obstruction, Nasal Trauma, Nose Pain, Post Nasal Drip, Sinus Pain, Sinus Pressure, Bleeding Gums, Change in Voice, Dental Pain, Dry Mouth, Dysphagia, Halitosis, Hoarsness, Lip Swelling, Mouth Lesions, Mouth Pain, Odynophagia, Sore Throat, Throat Swelling, Tongue Swelling, Facial Pain, Neck Pain, Neck Mass, Other - Cardiovascular Cardiovascular: absent: As Per HPI, Acrocyanosis, Chest Pain, Chest Pain at Rest , Chest Pain with Activity, Claudication, Diaphoresis, Dyspnea, Dyspnea on Exertion, Edema, Irregular Heart Rhythm, Pain Radiating to Arm/Neck/Jaw, Leg Edema, Leg Ulcers, Lightheadedness, Orthopnea, Palpitations, Paroxysmal Nocturnal Dyspnea, Pedal Edema, Radiating Pain, Rapid Heart Rate, Slow Heart Rate, Syncope, Other - Gastrointestinal Gastrointestinal: absent: As Per HPI, Abdominal Pain, Belching, Bloating, Change in Bowel Habits, Change in Stool Character, Coffee Ground Emesis, Constipation, Cramping, Diarrhea, Dyspepsia, Dysphagia, Early Satiety, Excessive Flatus, Fecal Incontinence, Heartburn, Hematemesis, Hematochezia, Loose Stools, Melena, Nausea, Odynophagia, Temesmus, Vomiting, Other - Genitourinary Genitourinary: absent: As Per HPI, Change in Urinary Stream, Difficulty Urinating, Dysuria, Flank Pain, Hematuria, Pyuria, Nocturia, Urinary Incontinence, Urinary Frequency, Urinary Hesitance, Urinary Urgency, Voiding Freq/Small Amts, Freq UTI, Hx Renal/Bladder Calculi, Hx /Renal Surgery, Bladder Distension, Other - Musculoskeletal Musculoskeletal: Joint Swelling, Limited Range of Motion, Myalgias Past Patient History - Past Medical History & Family History Past Medical History?: Yes - Past Social History Smoking Status: Never Smoked - CARDIAC Hx Cardiac Disorders: No - PULMONARY Hx Respiratory Disorders: No - NEUROLOGICAL Hx Neurological Disorder: No - HEENT Hx HEENT Problems: Yes Hx Glaucoma: Yes - RENAL Hx Chronic Kidney Disease: No - ENDOCRINE/METABOLIC Hx Endocrine Disorders: Yes Hx Diabetes Mellitus Type 2: Yes - HEMATOLOGICAL/ONCOLOGICAL Hx Blood Disorders: No - INTEGUMENTARY Hx Dermatological Problems: No - MUSCULOSKELETAL/RHEUMATOLOGICAL Hx Musculoskeletal Disorders: No Hx Falls: Yes - GASTROINTESTINAL Hx Gastrointestinal Disorders: No - GENITOURINARY/GYNECOLOGICAL Hx Genitourinary Disorders: No - PSYCHIATRIC Hx Substance Use: No - SURGICAL HISTORY Hx Surgeries: Yes Hx Musculoskeletal Surgery: Yes (1985 DISLOCATED LEFT HIP) - ANESTHESIA Hx Anesthesia: Yes Hx Anesthesia Reactions: No Hx Malignant Hyperthermia: No Meds Allergies/Adverse Reactions: Allergies Allergy/AdvReac Type Severity Reaction Status Date / Time No Known Allergies Allergy Verified 09/16/17 08:17 Physical Exam - Constitutional Appears: In Acute Distress - Eye Exam Eye Exam: Normal appearance - Cardiovascular Exam Cardiovascular Exam: REGULAR RHYTHM - GI/Abdominal Exam GI & Abdominal Exam: Normal Bowel Sounds, Soft. absent: Tenderness - Rectal Exam Rectal Exam: Deferred Results - Vital Signs Recent Vital Signs: Last Vital Signs Temp 98.3 F 09/16/17 16:15 Pulse 85 09/16/17 16:15 Resp 20 09/16/17 16:15 BP 116/61 09/16/17 16:15 Pulse Ox 98 09/16/17 16:15 - Labs Result Diagrams: 09/16/17 09:40 09/16/17 09:40 Labs: Laboratory Results - last 24 hr 09/16/17 09/16/17 09/16/17 09:40 09:40 09:40 WBC 5.0 RBC 4.03 L Hgb 12.1 Hct 35.0 MCV 86.8 MCH 30.0 MCHC 34.6 RDW 12.8 Plt Count 238 MPV 8.3 Neut % (Auto) 63.6 Lymph % (Auto) 26.3 [place] % (Auto) 6.8 Eos % (Auto) 2.2 Baso % (Auto) 1.1 Neut # (Auto) 3.2 Lymph # (Auto) 1.3 [place] # (Auto) 0.3 Eos # (Auto) 0.1 Baso # (Auto) 0.1 PT 11.2 INR 1.0 APTT 30 Sodium 139 Potassium 4.2 Chloride 101 Carbon Dioxide 27 Anion Gap 15 BUN 16 Creatinine 1.2 Est GFR ( Amer) > 60 Est GFR (Non-Af Amer) > 60 POC Glucose (mg/dL) Random Glucose 157 H Calcium 8.2 L Total Bilirubin 0.3 AST 23 ALT 38 Alkaline Phosphatase 39 Total Protein 6.0 L Albumin 3.6 Globulin 2.5 Albumin/Globulin Ratio 1.4 Blood Type Antibody Screen 09/16/17 09/16/17 09/16/17 14:08 17:03 21:13 WBC RBC Hgb Hct MCV MCH MCHC RDW Plt Count MPV Neut % (Auto) Lymph % (Auto) [place] % (Auto) Eos % (Auto) Baso % (Auto) Neut # (Auto) Lymph # (Auto) [place] # (Auto) Eos # (Auto) Baso # (Auto) PT INR APTT Sodium Potassium Chloride Carbon Dioxide Anion Gap BUN Creatinine Est GFR ( Amer) Est GFR (Non-Af Amer) POC Glucose (mg/dL) 125 H 176 H Random Glucose Calcium Total Bilirubin AST ALT Alkaline Phosphatase Total Protein Albumin Globulin Albumin/Globulin Ratio Blood Type AB POSITIVE Antibody Screen Negative Assessment & Plan (1) Fracture of bone Assessment and Plan: pt is for OR medically stable othopedic eval done Status: Acute (2) Diabetes Status: Acute
[2017-09-17 07:22] LABS: HEMOGLOBIN 10.6 g/dL (12.0-18.0); MEAN CELL VOLUME 87.4 fL (80.0-94.0); MEAN CORPUSCULAR HEMOGLOBIN 29.7 pg (27.0-31.0); MEAN PLATELET VOLUME 8.4 fL (7.2-11.7); RBC 3.57 Mil/uL (4.40-5.90); RED CELL DISTRIBUTION WIDTH 12.5 % (11.5-14.5); WHITE BLOOD COUNT 6.6 K/uL (4.8-10.8)
[2017-09-17] MEDS: (Novolog) Insulin Aspart, Recombinant 100 u/ml 10 ml vial SC SCH ×4 (07:51→23:16)
[2017-09-17 07:54] LABS: BLOOD UREA NITROGEN 16 mg/dL (9-20); CALCIUM 8.1 mg/dl (8.6-10.4); GFR AFRICAN-AMERICAN > 60; GFR NON-AFRICAN AMERICAN > 60
[2017-09-17] MEDS: Oxycodone/Acetaminophen 5/325 mg Tab PO PRN ×3 (09:29→23:40)
[2017-09-17] MEDS ORDERED: ceFAZolin 1 gm in NS 2 GM/200 ML BAG IVPB ONE (12:25)
[2017-09-17] MEDS ORDERED: Midazolam 2 MG/2 ML VIAL ONE (12:28)
[2017-09-17] MEDS ORDERED: Propofol 10 mg/ml Inj (20 ML) ONE (12:28)
[2017-09-17] MEDS ORDERED: Rocuronium 10 mg/ml (10 ml) ONE ×2 (12:29→13:24)
[2017-09-17] MEDS ORDERED: Succinylcholine Chloride 20 mg/ml Syr (5 ml) IV ONE (12:29)
[2017-09-17] MEDS ORDERED: ePHEDrine 50 mg/ml Inj ONE (13:03)
[2017-09-17] MEDS ORDERED: Neostigmine Methylsulfate 3mg/3ml Syringe IV ONE (14:34)
[2017-09-17] MEDS ORDERED: Bupivacaine HCl 0.25% PF (10 ml) Inj ONE ×2 (15:01)
[2017-09-17] MEDS ORDERED: HYDROmorphone 0.5 mg/0.5 ml ISec IVP PRN (15:15)
--- NOTE | 2017-09-17 15:17 | PCM.ANESB7 ---
Adductor Canal Block - Adductor Canal Block Date of Procedure: 09/17/17 Anesthiologist: maria m Pre-Procedure Diagnosis: left hip fx Post-Procedure Diagnosis: same Procedure Performed: Adductor Canal Block Left - Procedure Adductor Canal Block: The procedure was explained to the patient that it is for the post-operative pain management. Consent was obtained after a thorough discussion with the patient regarding the benefits and possible complications of local anesthetic adductor canal block of the femoral nerve. Standard monitors, as defined by the ASA, were applied to the patient. Time-out was held with the circulating nurse to confirm the appropriate block. After applying supplemental oxygen and administering IV Sedation as needed, the patient was placed in supine position with and the operative leg was flexed slightly at the knee and externally rotated as needed, and was kept anatomically stable. The mid-thigh of the __ left lower extremity was exposed. The ultrasound transducer was then applied transversely along the medial aspect, about midway down the thigh and the femoral artery and vein were identified in appropriate relation with the sartorius muscle. At this time, the femoral nerve was visualized lateral to the femoral artery within the canal. After thorough identification, this area area was prepped with Chloroprep solution three times and 1 % Lidocaine was injected subcutaneously for topical anesthesia. At this point, a #22 gauge Stimuplex 4-inch needle was inserted in-plane in a [id number] orientation, and advanced toward the femoral nerve. Advancement was performed carefully under direct ultrasound visualization. After negative aspiration, __5___cc of ___.25__% ___bupivicaine was injected and this was followed with __25____ cc of .25__ % bupcivcaine . Under ultrasound guidance the local anesthetics were observed spreading around the femoral nerve. The needle was removed intact and sterile dressing was applied. The patient had stable vital signs, was conscious and in no apparent distress. The patient tolerated the femoral nerve block well with stable vital signs and was prepared for subsequent surgery
--- NOTE | 2017-09-17 15:56 | RAD ---
Hip radiographs Indication: Postop hip surgery Findings: Intratrochanteric robson and screw fixation of the left intratrochanteric fracture. Soft tissue swelling, surgical lou, and subcutaneous emphysema consistent with recent postsurgical status. Alignment appears satisfactory. Impression: Postoperative left hip as above.
--- NOTE | 2017-09-17 15:58 | RAD ---
PROCEDURE: Left Wrist Radiographs. HISTORY: post op wrist surgery COMPARISON: None available. FINDINGS: Images are obtained through a cast which obscures osseous detail. Comminuted distal radial fracture re-identified. Alignment appears satisfactory. IMPRESSION: Post cast views as above.
--- NOTE | 2017-09-17 21:28 | CON ---
DATE: 09/16/2017 REASON FOR CONSULTATION: Left hip and left wrist fracture. HISTORY OF PRESENT ILLNESS: A 67-year-old right-hand dominant male who sustained a slip and a fall on ice landing on his outstretched left hand and hip. The patient was taken to [facility] Emergency Room, diagnosed with displaced intertrochanteric hip fracture and distal radius fracture. I was consulted for further evaluation and treatment. PHYSICAL EXAMINATION: LEFT WRIST: Splint is in place. Neurovascularly intact. The patient can active flex and extend his digits. Skin is intact. Tenderness over the distal radius. LEFT HIP: Externally rotated and shortened. Tenderness to palpation. Skin is intact. Patient is neurovascularly intact in bilateral lower extremities according to the staff. X-rays of the left wrist was seen and reviewed, showed displaced and slightly comminuted distal radius fracture. X-rays of the left hip was seen and reviewed, showed intertrochanteric fracture of the hip with displacement. ASSESSMENT: 1. Left distal radius fracture. 2. Left hip intertrochanteric fracture. PLAN: I discussed the findings with the patient. At this time, I recommend surgery for his hip which would include left hip closed reduction and IM nail as well. As far as the wrist, I recommended closed reduction. If reduction fails, then I would recommend surgical fixation of the wrist as well. Patient understands the above risks and elected to proceed. We will schedule this pending preoperative clearance and optimization. Walker Elmore MD JOAQUIN
--- NOTE | 2017-09-18 00:13 | PN ---
DATE: SUBJECTIVE: The patient is in OR. The patient is having left hip pain. He has a left wrist injury as well. He has been scheduled for OR. PHYSICAL EXAMINATION: VITAL SIGNS: Blood pressure 146/82, pulse 91, respiratory rate 20, temperature 97.3. LUNGS: Clear. CVS: S1, S2 regular. ABDOMEN: Soft. ASSESSMENT: 1. Left hip fracture, for open reduction and internal fixation. 2. Left wrist fracture, for possible cast. 3. Hypertension. 4. Diabetes. PLAN: Medical management. Monitor the patient. Mario Marquez MD
[2017-09-18] MEDS: (Novolog) Insulin Aspart, Recombinant 100 u/ml 10 ml vial SC SCH ×4 (07:24→21:27)
--- NOTE | 2017-09-18 16:32 | PCM.SURG1 ---
Surgeon's Initial Post Op Note - Surgeon's Notes Surgeon: jarad Consultative Sales Associate: Type of Anesthesia: General Endo Pre-Operative Diagnosis: L hip intertroch fx, L distal radius fx Operative Findings: see dictation Post-Operative Diagnosis: same Operation Performed: Left hip IM nail. Left wrist closed reduction casting Specimen/Specimens Removed: none Estimated Blood Loss: EBL {In ML}: 20 Date of Surgery/Procedure: 09/17/17 Time of Surgery/Procedure: 12:00
[2017-09-18] MEDS: Latanoprost 2.5 ml Opht Soln OU SCH (21:29)
[2017-09-18] MEDS: Oxycodone/Acetaminophen 5/325 mg Tab PO PRN (21:30)
--- NOTE | 2017-09-18 22:35 | CP.PCM.PN ---
Subjective - Date & Time of Evaluation Date of Evaluation: 09/18/17 Time of Evaluation: 19:40 - Subjective Subjective: Pt is seen and evaluated during routine follow up rounds today Objective - Vital Signs/Intake and Output Vital Signs (last 24 hours): Temp Pulse Resp BP Pulse Ox 99.2 F 107 H 20 112/58 L 95 09/18/17 15:00 09/18/17 15:00 09/18/17 15:00 09/18/17 15:00 09/18/17 15:00 Intake and Output: 09/18/17 09/19/17 18:59 06:59 Intake Total 400 Output Total 300 500 Balance 100 -500 - Medications Medications: Current Medications Finasteride (Proscar) 5 mg PO DAILY [facility] Last Admin: 09/18/17 09:11 Dose: 5 mg Heparin Sodium (Porcine) (Heparin) 5,000 units SC Q8 [facility] Last Admin: 09/18/17 21:29 Dose: 5,000 units Home Med (Dorzolamide Hcl/Timolol Maleat [Dorzolamide-Timolol Eye Drops]) 1 drop BOTHEYES BID [facility] Home Med (Patient's Own Drops) 1 drop OU HS [facility] Last Admin: 09/18/17 21:29 Dose: 1 drop Hydromorphone HCl (Dilaudid) 1 mg IVP Q4H PRN PRN Reason: Pain, moderate (4-7) Last Admin: 09/18/17 09:14 Dose: 1 mg Insulin Aspart (Novolog) 0 unit SC ACHS [facility] PRN Reason: Protocol Last Admin: 09/18/17 21:27 Dose: Not Given Metformin HCl (Glucophage) 500 mg PO DAILY [facility] Last Admin: 09/18/17 09:11 Dose: 500 mg Oxycodone/Acetaminophen (Percocet 5/325 Mg Tab) 1 tab PO Q4H PRN PRN Reason: Pain, severe (8-10) Stop: 09/19/17 11:51 Last Admin: 09/18/17 21:30 Dose: 1 tab Zolpidem Tartrate (Ambien) 5 mg PO HS PRN PRN Reason: Insomnia Last Admin: 09/16/17 21:34 Dose: 5 mg - Labs Labs: 09/17/17 07:15 09/17/17 07:15 PT 11.2 SECONDS (9.7-12.2) 09/16/17 09:40 INR 1.0 09/16/17 09:40 APTT 30 SECONDS (21-34) 09/17/17 07:15 Assessment and Plan (1) Fracture of bone Status: Acute (2) Diabetes Status: Acute
--- NOTE | 2017-09-18 23:04 | CARD ---
APPROVED REPORT EKG Measurement Heart [id number] <Conclusion> Normal sinus rhythm Normal ECG
--- NOTE | 2017-09-19 02:32 | OP ---
PROCEDURE DATE: 09/17/2017 SURGEON: Walker Elmore MD PREOPERATIVE DIAGNOSES: 1. Left hip displaced intertrochanteric fracture. 2. Left distal radius displaced fracture. POSTOPERATIVE DIAGNOSES: 1. Left hip displaced intertrochanteric fracture. 2. Left distal radius displaced fracture. PROCEDURES: 1. Left hip closed reduction and intramedullary nail fixation, [id number]. 2. Left wrist closed reduction and casting and long-arm cast, [id number]. TYPE OF ANESTHESIA: General. ESTIMATED BLOOD LOSS: Minimal. SPECIMENS: None. COMPLICATIONS: None. DISPOSITION: Stable to recovery room. INDICATIONS: This is a 67-year-old male, who sustained a slip and fall on ice, landing outside on his left side of the body. The patient ambulated pain free prior to the fall. He was not able to get up due to hip pain and wrist pain. The patient was taken by EMS to [facility] Emergency Room, where he underwent primary evaluation. The patient was admitted to the hospital due to displaced hip fracture and wrist fracture. He was diagnosed with displaced intertrochanteric hip fracture, which required surgical fixation. Risks and benefits of the procedure were explained. Risks included but not limited to bleeding, infection, tendon, nerve, vessel injury, instability, chronic pain, malunion, nonunion, potential need for additional surgery in the future. Patient understood the above risks and elected to proceed. Informed consent was obtained. DESCRIPTION OF PROCEDURE: The patient was brought into the operating room and placed supine on the operating room table, traction table. General anesthesia was given as well as prophylactic antibiotic. A time-out was performed. The left leg was then placed into traction and a closed reduction was performed consisting of traction, adduction, and internal rotation of the leg. Fluoroscopic images confirmed well-aligned and reduced intertrochanteric fracture of the hip. Next, the left hip was prepped and draped in a standard surgical fashion. A proposed incision was outlined. This was a 2 to 3 cm incision proximal to the greater trochanteric area. Incision was made through the skin only. All superficial veins were cauterized. Dissection was carried down bluntly till the identification of the IT band. The IT band was split in line with incision. The gluteus medius was then identified and also split in line with the incision. The starting point for the greater trochanter was identified. Under fluoroscopy, a guidewire was advanced into the intramedullary canal, starting at the greater trochanteric area. Guidewire placement was confirmed, both AP and lateral fluoroscopy images. Next, an opening reamer was placed over the guidewire and the medullary canal was opened with a reamer. The guidewire and the reamer were then removed. A short TFN nail Synthes was selected and placed into the intramedullary canal under fluoroscopic guidance. The nail was advanced with light hammer blows until proper sealing position. Next work begun on locking and placing the Helical blade. A guide was placed over the aiming device and incision was made over the skin. Blunt dissection was carried down to the cortex of the femur. The aiming guide for the Helical blade was advanced until the level of the cortex of the femur. The guidewire was advanced into the femoral neck and confirmed in good AP and lateral position in a center-center location. A measuring guide was then used to select the appropriate length of the Helical blade. A 100-mm Helical blade was selected. The measuring guide was removed followed by a reaming the femoral neck. The reamer was advanced to appropriate length. Next, the Helical blade was assembled and advanced with light hammer blows until proper position. Fluoroscopic images again confirmed well positioning of the Helical blade. Both AP and lateral fluoroscopic images confirmed anatomic position. Next, the proximal screw was used to dynamicly lock the Helical blade into the nail. Next the distal locking guide was assembled and placed into the aiming guide. Incision was made over the skin of the distal locking guide. Dissection was carried out bluntly to the lateral femoral cortex. The aiming guide was advanced to the lateral femoral cortex and the drill was used for bicortical drilling. Next, an appropriate size screw was selected and advanced into the distal locking hole, locking the nail in place. The aiming guide was then removed, followed by removal of traction. Final fluoroscopic images confirmed the anatomic reduction and excellent placement of nail in multiple fluoroscopic images. The wound was then copiously irrigated. The deep layers were closed by 0 Vicryl followed by 2-0 Vicryl and lou for skin. Aquacel dressing was applied. Next, work was begun on wrist fracture. The left wrist was hung on IV pole with 15 pounds of countertraction was applied to the forearm. Close reduction was performed, by traction, forward flexion. Intraoperative fluoroscopy confirmed well aligned distal radius fracture with christianity of radial height, tilt, and inclination. A long-arm well padded cast was then applied to the left upper extremity. Traction was removed. The patient tolerated the procedure well. Postsurgery, the patient underwent left femoral nerve block for pain control. He tolerated the procedure well and was returned to recovery room in excellent condition. Walker Elmore MD JOAQUIN
[2017-09-19] MEDS: (Novolog) Insulin Aspart, Recombinant 100 u/ml 10 ml vial SC SCH ×4 (08:14→22:03)
--- NOTE | 2017-09-19 09:05 | RAD ---
PROCEDURE: Intraoperative Fluoroscopy. HISTORY: FX. LT. HIP FINDINGS: Fluoroscopic assistance was provided for left hip open reduction internal fixation. Please refer to the operative report from BASSAM Bryant.
[2017-09-19] MEDS: Oxycodone/Acetaminophen 5/325 mg Tab PO PRN (10:13)
[2017-09-19] MEDS ORDERED: HYDROmorphone 1 mg/ml ISec IVP PRN (11:30)
--- NOTE | 2017-09-19 15:54 | CP.PCM.PN ---
Subjective - Date & Time of Evaluation Date of Evaluation: 09/19/17 Time of Evaluation: 15:52 - Subjective Subjective: Ortho f/u Dr. Elmore Patient states complains of thigh pain and swelling. Denies any numbness/ tingling, CP?SOB/dizziness. Objective - Vital Signs/Intake and Output Vital Signs (last 24 hours): Temp Pulse Resp BP Pulse Ox 98.6 F 99 H 20 98/56 L 100 09/19/17 15:48 09/19/17 15:48 09/19/17 15:48 09/19/17 15:48 09/19/17 15:48 Intake and Output: 09/19/17 09/19/17 06:59 18:59 Intake Total 120 Output Total 1150 Balance -1030 - Medications Medications: Current Medications Finasteride (Proscar) 5 mg PO DAILY [facility] Last Admin: 09/19/17 09:54 Dose: 5 mg Heparin Sodium (Porcine) (Heparin) 5,000 units SC Q8 [facility] Last Admin: 09/19/17 13:48 Dose: 5,000 units Home Med (Dorzolamide Hcl/Timolol Maleat [Dorzolamide-Timolol Eye Drops]) 1 drop BOTHEYES BID [facility] Home Med (Patient's Own Drops) 1 drop OU HS [facility] Last Admin: 09/18/17 21:29 Dose: 1 drop Hydromorphone HCl (Dilaudid) 1 mg IVP Q4H PRN PRN Reason: Pain, moderate (4-7) Insulin Aspart (Novolog) 0 unit SC ACHS [facility] PRN Reason: Protocol Last Admin: 09/19/17 13:46 Dose: 2 unit Metformin HCl (Glucophage) 500 mg PO DAILY [facility] Last Admin: 09/19/17 09:54 Dose: 500 mg Zolpidem Tartrate (Ambien) 5 mg PO HS PRN PRN Reason: Insomnia Last Admin: 09/16/17 21:34 Dose: 5 mg - Labs Labs: 09/17/17 07:15 09/17/17 07:15 PT 11.2 SECONDS (9.7-12.2) 09/16/17 09:40 INR 1.0 09/16/17 09:40 APTT 30 SECONDS (21-34) 09/17/17 07:15 - Extremities Exam Additional comments: LUE: +ROM fingers/thumbm sensation intact, fingers warm good cap refill cast intact LLE: +ROM ankle/toes, mild swelling only to thigh, dressing intact, no visible drainage. calves soft NT neg homans +SCD +DP/PT pulses, sensation intact Assessment and Plan (1) Closed intertrochanteric fracture of left femur Assessment & Plan: POD# 2 s/p ORIF left hip and closed reduction/long arm casting left distal radius PT/OT d/c planning VTE proph, on heparin as per Dr. Elmore NWB LUE, WBAT LLE f/u labs now and in am d/w Dr. Elmore, agrees with above Status: Acute (2) Closed fracture of left distal radius Status: Acute
[2017-09-19 17:40] LABS: MEAN CORPUSCULAR HEMOGLOBIN 29.7 pg (27.0-31.0); MEAN CORPUSCULAR HGB CONC 33.8 g/dL (33.0-37.0); RBC 2.74 Mil/uL (4.40-5.90); RED CELL DISTRIBUTION WIDTH 12.4 % (11.5-14.5); WHITE BLOOD COUNT 6.9 K/uL (4.8-10.8)
[2017-09-19 17:44] LABS: HEMOGLOBIN 8.2 g/dL (12.0-18.0)
[2017-09-19 17:51] LABS: BLOOD UREA NITROGEN 16 mg/dL (9-20); CALCIUM 7.8 mg/dl (8.6-10.4); GFR AFRICAN-AMERICAN > 60; GFR NON-AFRICAN AMERICAN > 60
[2017-09-19] MEDS: Latanoprost 2.5 ml Opht Soln OU SCH (22:02)
--- NOTE | 2017-09-19 22:56 | CP.PCM.PN ---
Subjective - Date & Time of Evaluation Date of Evaluation: 09/19/17 Time of Evaluation: 17:30 - Subjective Subjective: pt seen and evaluated , PT IS POST OP DAY 2 , HE IS DOING WELL, HE IS ON PT AMND TOLERATING WELL Objective - Vital Signs/Intake and Output Vital Signs (last 24 hours): Temp Pulse Resp BP Pulse Ox 98.6 F 99 H 20 98/56 L 100 09/19/17 15:48 09/19/17 15:48 09/19/17 15:48 09/19/17 15:48 09/19/17 15:48 Intake and Output: 09/19/17 09/20/17 18:59 06:59 Intake Total 300 Output Total 400 Balance -100 - Medications Medications: Current Medications Finasteride (Proscar) 5 mg PO DAILY [facility] Last Admin: 09/19/17 09:54 Dose: 5 mg Heparin Sodium (Porcine) (Heparin) 5,000 units SC Q8 [facility] Last Admin: 09/19/17 21:00 Dose: 5,000 units Home Med (Dorzolamide Hcl/Timolol Maleat [Dorzolamide-Timolol Eye Drops]) 1 drop BOTHEYES BID [facility] Home Med (Patient's Own Drops) 1 drop OU HS [facility] Last Admin: 09/19/17 22:02 Dose: Not Given Hydromorphone HCl (Dilaudid) 1 mg IVP Q4H PRN PRN Reason: Pain, moderate (4-7) Last Admin: 09/19/17 21:59 Dose: 1 mg Insulin Aspart (Novolog) 0 unit SC ACHS [facility] PRN Reason: Protocol Last Admin: 09/19/17 22:03 Dose: Not Given Metformin HCl (Glucophage) 500 mg PO DAILY [facility] Last Admin: 09/19/17 09:54 Dose: 500 mg Zolpidem Tartrate (Ambien) 5 mg PO HS PRN PRN Reason: Insomnia Last Admin: 09/16/17 21:34 Dose: 5 mg - Labs Labs: 09/19/17 17:24 09/19/17 17:24 PT 11.2 SECONDS (9.7-12.2) 09/16/17 09:40 INR 1.0 09/16/17 09:40 APTT 30 SECONDS (21-34) 09/17/17 07:15 - Constitutional Appears: No Acute Distress - Head Exam Head Exam: ATRAUMATIC, NORMAL INSPECTION, NORMOCEPHALIC - Eye Exam Eye Exam: EOMI, Normal appearance, PERRL Pupil Exam: NORMAL ACCOMODATION, PERRL - ENT Exam ENT Exam: Mucous Membranes Moist, Normal Exam - Respiratory Exam Respiratory Exam: Clear to Ausculation Bilateral, NORMAL BREATHING PATTERN - Cardiovascular Exam Cardiovascular Exam: REGULAR RHYTHM, +S1, +S2. absent: Murmur - GI/Abdominal Exam GI & Abdominal Exam: Soft, Normal Bowel Sounds. absent: Tenderness - Rectal Exam Rectal Exam: Deferred Assessment and Plan (1) Fracture of bone Assessment & Plan: S/P OR Status: Acute (2) Diabetes Status: Acute
[2017-09-20 07:26] LABS: HEMOGLOBIN 8.3 g/dL (12.0-18.0); MEAN CELL VOLUME 87.2 fL (80.0-94.0); MEAN CORPUSCULAR HEMOGLOBIN 30.1 pg (27.0-31.0); MEAN CORPUSCULAR HGB CONC 34.6 g/dL (33.0-37.0); MEAN PLATELET VOLUME 8.5 fL (7.2-11.7); RBC 2.74 Mil/uL (4.40-5.90); RED CELL DISTRIBUTION WIDTH 12.7 % (11.5-14.5); WHITE BLOOD COUNT 5.9 K/uL (4.8-10.8)
[2017-09-20 07:42] LABS: BLOOD UREA NITROGEN 17 mg/dL (9-20); GFR AFRICAN-AMERICAN > 60; GFR NON-AFRICAN AMERICAN > 60
[2017-09-20] MEDS: (Novolog) Insulin Aspart, Recombinant 100 u/ml 10 ml vial SC SCH ×3 (08:03→17:12)
[2017-09-20] MEDS ORDERED: Oxycodone/Acetaminophen 5/325 mg Tab PO PRN (10:59)
--- NOTE | 2017-09-20 15:10 | CP.PCM.PN ---
Subjective - Date & Time of Evaluation Date of Evaluation: 09/20/17 Time of Evaluation: 10:45 - Subjective Subjective: Patient seen today , denies any chest pain, sob, dizziness, numbness / tinglings to cookie LUE and LLE , c/o nauseous s/p ORIF left hip and closed reduction/long arm casting left distal radius s/p POD# 2 Objective - Vital Signs/Intake and Output Vital Signs (last 24 hours): Temp Pulse Resp BP Pulse Ox 98.8 F 95 H 20 138/74 99 09/20/17 07:00 09/20/17 07:00 09/20/17 07:00 09/20/17 07:00 09/20/17 07:00 Intake and Output: 09/20/17 09/20/17 06:59 18:59 Intake Total 300 690 Output Total 400 720 Balance -100 -30 - Medications Medications: Current Medications Finasteride (Proscar) 5 mg PO DAILY [facility] Last Admin: 09/20/17 09:12 Dose: 5 mg Heparin Sodium (Porcine) (Heparin) 5,000 units SC Q8 [facility] Last Admin: 09/20/17 13:10 Dose: 5,000 units Home Med (Dorzolamide Hcl/Timolol Maleat [Dorzolamide-Timolol Eye Drops]) 1 drop BOTHEYES BID [facility] Home Med (Patient's Own Drops) 1 drop OU HS [facility] Last Admin: 09/19/17 22:02 Dose: Not Given Insulin Aspart (Novolog) 0 unit SC ACHS [facility] PRN Reason: Protocol Last Admin: 09/20/17 12:13 Dose: 3 unit Metformin HCl (Glucophage) 500 mg PO DAILY [facility] Last Admin: 09/20/17 09:12 Dose: 500 mg Ondansetron HCl (Zofran Inj) 4 mg IVP Q6 PRN PRN Reason: Nausea/Vomiting Last Admin: 09/20/17 11:09 Dose: 4 mg Oxycodone/Acetaminophen (Percocet 5/325 Mg Tab) 1 tab PO Q6H PRN PRN Reason: Pain, moderate (4-7) Stop: 09/23/17 11:00 Zolpidem Tartrate (Ambien) 5 mg PO HS PRN PRN Reason: Insomnia Last Admin: 09/16/17 21:34 Dose: 5 mg - Labs Labs: 09/20/17 07:12 09/20/17 07:12 PT 11.2 SECONDS (9.7-12.2) 09/16/17 09:40 INR 1.0 09/16/17 09:40 APTT 30 SECONDS (21-34) 09/17/17 07:15 Assessment and Plan - Assessment and Plan (Free Text) Assessment: A/P 67 yr old male admitted s/p fall , left hip and wrist fracture. s/p ORIF left hip and closed reduction/long arm casting left distal radius POD # 2 seen by Ortho today cleared for discharge to rehab from ortho stand point and continue PT/OT and VTE prophylaxis Patient accepted at [facility] for rehab D/w Dr. Marquez, stable for discharge to [facility] and Dr. Villatoro will follow the patient at [facility] Discharge plan discussed with pateint who understands and agrees with plan
[2017-09-20 16:28] VITALS: BP 119/62; PULSE 81; RESP 18; TEMP 98.7; O2SAT 98
--- NOTE | 2017-09-20 17:12 | CP.PCM.PN ---
Subjective - Date & Time of Evaluation Date of Evaluation: 09/20/17 Time of Evaluation: 13:00 - Subjective Subjective: Patient states pain is controlled. No new complaints. Tolerating PT well. Mild nausea after pain medication today. Denies CP/SOB/dizziness. Objective - Vital Signs/Intake and Output Vital Signs (last 24 hours): Temp Pulse Resp BP Pulse Ox 98.7 F 81 18 119/62 98 09/20/17 15:27 09/20/17 15:27 09/20/17 15:27 09/20/17 15:27 09/20/17 15:27 Intake and Output: 09/20/17 09/20/17 06:59 18:59 Intake Total 300 690 Output Total 400 720 Balance -100 -30 - Medications Medications: Current Medications Finasteride (Proscar) 5 mg PO DAILY [facility] Last Admin: 09/20/17 09:12 Dose: 5 mg Heparin Sodium (Porcine) (Heparin) 5,000 units SC Q8 [facility] Last Admin: 09/20/17 13:10 Dose: 5,000 units Home Med (Dorzolamide Hcl/Timolol Maleat [Dorzolamide-Timolol Eye Drops]) 1 drop BOTHEYES BID [facility] Home Med (Patient's Own Drops) 1 drop OU HS [facility] Last Admin: 09/19/17 22:02 Dose: Not Given Insulin Aspart (Novolog) 0 unit SC ACHS [facility] PRN Reason: Protocol Last Admin: 09/20/17 12:13 Dose: 3 unit Metformin HCl (Glucophage) 500 mg PO DAILY [facility] Last Admin: 09/20/17 09:12 Dose: 500 mg Ondansetron HCl (Zofran Inj) 4 mg IVP Q6 PRN PRN Reason: Nausea/Vomiting Last Admin: 09/20/17 11:09 Dose: 4 mg Oxycodone/Acetaminophen (Percocet 5/325 Mg Tab) 1 tab PO Q6H PRN PRN Reason: Pain, moderate (4-7) Stop: 09/23/17 11:00 Zolpidem Tartrate (Ambien) 5 mg PO HS PRN PRN Reason: Insomnia Last Admin: 09/16/17 21:34 Dose: 5 mg - Labs Labs: 09/20/17 07:12 09/20/17 07:12 PT 11.2 SECONDS (9.7-12.2) 09/16/17 09:40 INR 1.0 09/16/17 09:40 APTT 30 SECONDS (21-34) 09/17/17 07:15 - Extremities Exam Additional comments: Left hip dressing change: incisions intact, no erythema, dry, thigh swelling improving, sterile dressing applied, calves soft NT neg homans LUE cast intact, +ROM fingers, sensation intact (continued tingling to tip of middle finger which has not changed) +cap refill Assessment and Plan (1) Closed intertrochanteric fracture of left femur Assessment & Plan: POD#3 s/p left distal radius CR/LAC and left hip IM nail ortho stable for d/c to rehab f/u 2 weeks call for appt Dr. Elmore cont VTE proph and PT/OT WBAT LLE, NWB LUE d/w Dr. Elmoreagrees with above Status: Acute (2) Closed fracture of left distal radius Status: Acute
--- NOTE | 2017-09-20 23:33 | CP.PCM.DIS ---
Provider - Provider Date of Admission: 09/16/17 09:40 Attending physician: Mario Marquez MD Time Spent in preparation of Discharge (in minutes): 25 Diagnosis - Discharge Diagnosis (1) Fracture of bone Status: Acute (2) Diabetes Status: Acute Hospital Course - Lab Results Lab Results: Most Recent Lab Values WBC 5.9 K/uL (4.8-10.8) 09/20/17 07:12 RBC 2.74 Mil/uL (4.40-5.90) L 09/20/17 07:12 Hgb 8.3 g/dL (12.0-18.0) L 09/20/17 07:12 Hct 23.9 % (35.0-51.0) L 09/20/17 07:12 MCV 87.2 fL (80.0-94.0) 09/20/17 07:12 MCH 30.1 pg (27.0-31.0) 09/20/17 07:12 MCHC 34.6 g/dL (33.0-37.0) 09/20/17 07:12 RDW 12.7 % (11.5-14.5) 09/20/17 07:12 Plt Count 203 K/uL (130-400) 09/20/17 07:12 MPV 8.5 fL (7.2-11.7) 09/20/17 07:12 Neut % (Auto) 63.6 % (50.0-75.0) 09/16/17 09:40 Lymph % (Auto) 26.3 % (20.0-40.0) 09/16/17 09:40 [place] % (Auto) 6.8 % (0.0-10.0) 09/16/17 09:40 Eos % (Auto) 2.2 % (0.0-4.0) 09/16/17 09:40 Baso % (Auto) 1.1 % (0.0-2.0) 09/16/17 09:40 Neut # (Auto) 3.2 K/uL (1.8-7.0) 09/16/17 09:40 Lymph # (Auto) 1.3 K/uL (1.0-4.3) 09/16/17 09:40 [place] # (Auto) 0.3 K/uL (0.0-0.8) 09/16/17 09:40 Eos # (Auto) 0.1 K/uL (0.0-0.7) 09/16/17 09:40 Baso # (Auto) 0.1 K/uL (0.0-0.2) 09/16/17 09:40 PT 11.2 SECONDS (9.7-12.2) 09/16/17 09:40 INR 1.0 09/16/17 09:40 APTT 30 SECONDS (21-34) 09/17/17 07:15 Sodium 139 mmol/L (132-148) 09/20/17 07:12 Potassium 4.0 mmol/L (3.6-5.2) 09/20/17 07:12 Chloride 101 mmol/L (98-107) 09/20/17 07:12 Carbon Dioxide 30 mmol/L (22-30) 09/20/17 07:12 Anion Gap 11 (10-20) 09/20/17 07:12 BUN 17 mg/dL (9-20) 09/20/17 07:12 Creatinine 1.1 mg/dL (0.8-1.5) 09/20/17 07:12 Est GFR ( Amer) > 60 09/20/17 07:12 Est GFR (Non-Af Amer) > 60 09/20/17 07:12 POC Glucose (mg/dL) 147 mg/dL (65-110) H 09/20/17 17:06 Random Glucose 132 mg/dL (75-110) H 09/20/17 07:12 Calcium 8.0 mg/dl (8.6-10.4) L 09/20/17 07:12 Total Bilirubin 0.3 mg/dL (0.2-1.3) 09/16/17 09:40 AST 23 U/L (17-59) 09/16/17 09:40 ALT 38 U/L (21-72) 09/16/17 09:40 Alkaline Phosphatase 39 U/L (38-126) 09/16/17 09:40 Total Protein 6.0 g/dL (6.3-8.3) L 09/16/17 09:40 Albumin 3.6 g/dL (3.5-5.0) 09/16/17 09:40 Globulin 2.5 gm/dL (2.2-3.9) 09/16/17 09:40 Albumin/Globulin Ratio 1.4 (1.0-2.1) 09/16/17 09:40 Blood Type AB POSITIVE 09/16/17 14:08 Antibody Screen Negative 09/16/17 14:08 - Hospital Course Hospital Course: A/P 67 yr old male admitted s/p fall , left hip and wrist fracture. s/p ORIF left hip and closed reduction/long arm casting left distal radius POD # 2 seen by Ortho today cleared for discharge to rehab from ortho stand point and continue PT/OT and VTE prophylaxis Patient accepted at [facility] for rehab Pt is stable for discharge to [facility] and Ill follow the patient at [facility] Discharge plan discussed with pateint who understands and agrees with plan Discharge Exam - Head Exam Head Exam: ATRAUMATIC, NORMAL INSPECTION, NORMOCEPHALIC Discharge Plan - Discharge Medications Prescriptions: Docusate [Colace] 100 mg PO BID #60 cap - Follow Up Plan Condition: FAIR Disposition: TRANSF TO SNF Instructions: Hip Fracture (DC), Radius Fracture (DC), Open Reduction and Internal Fixation Surgery (DC), Closed Fracture Reduction (DC), Managing Pain After Surgery Additional Instructions: Please place patient under Dr. Marquez service - Call Dr. Marquez upon patient arrival to the facility Please f/u with Dr. Elissa Cardoso (ortho) office in 2 week - call and make appointment Continue medication as per med. rec. Please continue heparin sc Please do cbc, bmp on Tuesday then q week Referrals: Mario Marquez MD [Staff Provider] - Walker Elmore MD [Staff Provider] -
== END 2017-09-20 18:40 | DRG 481 ==
LOC: C.ER 08:11 → C.9E 09:40 → C.6T 10:21
PROVIDERS: ADMIT Internal Medicine; ATTEND Internal Medicine
PROC: 0QS736Z Reposition Left Upper Femur with Intramedullary Internal Fixation Device, Percutaneous Approach (ICD-10-PCS; principal; 2017-09-17 11:15)
PROC: 0PSJXZZ Reposition Left Radius, External Approach (ICD-10-PCS; 2017-09-17 11:15)
DX: S72.142A Displaced intertrochanteric fracture of left femur, initial encounter for closed fracture (principal); S52.592A Other fractures of lower end of left radius, initial encounter for closed fracture; E11.9 Type 2 diabetes mellitus without complications; G89.11 Acute pain due to trauma; I10 Essential (primary) hypertension; H40.9 Unspecified glaucoma; W00.0XXA Fall on same level due to ice and snow, initial encounter; Y92.410 Unspecified street and highway as the place of occurrence of the external cause

== ENCOUNTER 2018-10-17 19:05 | Inpatient (IN) | payer OTHER ==
[2018-10-17 19:06] VITALS: BMI 26.8
--- NOTE | 2018-10-17 19:25 | C.PDOC ---
History Of Present Illness 68 year old male with PMHx of diabetes, non insulin dependent, presents to the ED c/o intermittent numbness over right leg, right arm and right sided face that started on Tuesday. Patient states he saw his PMD today and was sent in for evaluation. Patient denies fever, chills, headache, visual changes, slurred speech, nausea, vomit, diarrhea, injury, fall, trauma, weakness,. Time Seen by Provider: 10/17/18 19:25 Chief Complaint (Nursing): Weakness/Neurological Deficit History Per: Patient History/Exam Limitations: no limitations Onset/Duration Of Symptoms: Days (4) Current Symptoms Are (Timing): Still Present Associated Symptoms Preceding Syncopal Episode: No Predromal Symptoms (Sudden Onset) Seizure Or Post-ictal Symptoms: None Possible Causative Factor(s): denies: New Medications Fall Associated With With Symptoms: No Severity: Mild Pain Scale Rating Of: 3 Recent travel outside of the [place]: No Additional History Per: Patient - Symptoms Of CVA Associated Symptoms: denies: Impaired Speech Recent Aspirin Use: No Current Coumadin Use?: No Recent Head Trauma: No Past Medical History Reviewed: Historical Data, Nursing Documentation, Vital Signs - Medical History PMH: Diabetes Denies: Chronic Kidney Disease Surgical History: No Surg Hx - [facility] Procedures COLONOSCOPY (02/14/14) REPOSITION LEFT RADIUS, EXTERNAL APPROACH (09/16/17) REPOSITION LEFT UPPER FEMUR WITH INTRAMED FIX, PERC APPROACH (09/16/17) Family History: States: No Known Family Hx - Social History Hx Tobacco Use: No Hx Alcohol Use: Yes Hx Substance Use: No - Immunization History Hx Tetanus Toxoid Vaccination: (unk) Hx Influenza Vaccination: Yes (2016) Hx Pneumococcal Vaccination: (unk) Review Of Systems Constitutional: Negative for: Fever, Chills Eyes: Negative for: Vision Change ENT: Negative for: Throat Pain Cardiovascular: Negative for: Chest Pain, Palpitations Respiratory: Negative for: Shortness of Breath Gastrointestinal: Negative for: Nausea, Vomiting, Abdominal Pain Genitourinary: Negative for: Dysuria Musculoskeletal: Negative for: Back Pain Skin: Negative for: Rash Neurological: Positive for: Numbness. Negative for: Weakness, Confusion, Headache, Dizziness Psych: Negative for: Anxiety Physical Exam - Physical Exam Appears: Non-toxic Skin: Warm, Dry Head: Normacephalic Eye(s): bilateral: Normal Inspection, PERRL, EOMI Oral Mucosa: Moist Neck: Trachea Midline, Supple Chest: Symmetrical Cardiovascular: Rhythm Regular Respiratory: No Rales, No Rhonchi, No Wheezing Gastrointestinal/Abdominal: Soft, No Tenderness, No Guarding, No Rebound Back: No CVA Tenderness Extremity: No Tenderness, No Pedal Edema Extremity: Bilateral: Atraumatic, Normal Color And Temperature, Normal ROM Pulses: Left Dorsalis Pedis: Normal, Right Dorsalis Pedis: Normal Neurological/Psych: Oriented x3, Normal Speech, Normal Cognition, Normal Motor, Normal Sensation Gait: Unable To Assess ED Course And Treatment - Laboratory Results Result Diagrams: 10/17/18 19:45 10/17/18 19:45 ECG: Interpreted By Me, Viewed By Me ECG Rhythm: Sinus Rhythm (84), Nonspecific Changes O2 Sat by Pulse Oximetry: 100 (On RA) Pulse Ox Interpretation: Normal - Radiology CXR: Interpreted by Me, Viewed By Me CXR Interpretation: No: Infiltrates, Fracture, Pnemothorax Progress Note: Plan: - Labs. - CT head. - CTA neck. - EKG. - Labs. - IV fluids. - CXR. spoke with dr saavedra - does not meet criteria for tpa. will see the pt Critical Care Time - Critical Care Note Total Time (in mins): 30 Documented critical care: time excludes all time spent performing seperately b illable procedures. NIHSS Stroke Scale 2 - Date/Time Evaluation Performed Date Performed: 10/17/18 Time Performed: 19:29 When Was NIHSS Performed: Baseline - How Severe is the Stroke Level of Consciousness: 0=Alert LOC to Questions: 0=Both comments correct LOC to commands: 0=Obeys both correctly Best Gaze: 0=Normal Visual: 0=No visual loss Facial: 0=Normal Motor Arm - Left: 0=No drift Motor Arm - Right: 0=No drift Motor Leg - Left: 0=No drift Motor Leg - Right: 0=No drift Limb Ataxia: 0=Absent Sensory: 0=Normal Best Language: 0=No aphasia Dysarthia: 0=Normal articulation Extinction & Inattention (Neglect): 0=Normal, no object Score: 0 Disposition Discussed With : Mario Marquez Comment: accepted the pt on his service and took over the care at 8:17 PM Doctor Will See Patient In The: Hospital Counseled Patient/Family Regarding: Studies Performed, Diagnosis - Disposition Disposition: HOSPITALIZED Disposition Time: 19:25 Condition: GUARDED Forms: [facility] ([place]) - POA Present On Arrival: Poor Glycemic Control - Clinical Impression Clinical Impression: Paresthesia, TIA (transient ischemic attack) Decision To Admit - Pt Status Changed To: Hospital Disposition Of: Inpatient - Admit Certification Admit to Inpatient:: After my assessment, the patient will require hospitalization for at least two midnights. This is because of the severity of symptoms shown, intensity of services needed, and/or the medical risk in this patient being treated as an outpatient. - InPatient: Physician Admission Certification: I certify that this patient requires 2 or more midnights of care for the following reason:: After my assessment, the patient will require hospitalization for at least two midnights. This is because of the severity of symptoms shown, intensity of services needed, and/or the medical risk in this patient being treated as an outpatient. - . Bed Request Type: Telemetry Admitting Physician: Mario Marquez Patient Diagnosis: Paresthesia, TIA (transient ischemic attack)
[2018-10-17] MEDS ORDERED: Iodixanol 320 MG/ML 100 ML BOTTLE IV ONE (19:34)
[2018-10-17 19:50] LABS: BASO # 0.1 K/uL (0.0-0.2); BASO % 1.5 % (0.0-2.0); EOS # 0.1 K/uL (0.0-0.7); EOS % 1.8 % (0.0-4.0); HEMOGLOBIN 13.8 g/dL (12.0-18.0); LYMPH # 1.8 K/uL (1.0-4.3); LYMPH % 31.3 % (20.0-40.0); MEAN CELL VOLUME 88.3 fL (80.0-94.0); MEAN CORPUSCULAR HEMOGLOBIN 29.4 pg (27.0-31.0); MEAN CORPUSCULAR HGB CONC 33.4 g/dL (33.0-37.0); MONO # 0.5 K/uL (0.0-0.8); MONO % 7.9 % (0.0-10.0); NEUT # 3.4 K/uL (1.8-7.0); NEUT % 57.5 % (50.0-75.0); RBC 4.69 Mil/uL (4.40-5.90); WHITE BLOOD COUNT 5.9 K/uL (4.8-10.8)
[2018-10-17 20:05] LABS: ALB/GLOB RATIO 1.5 (1.0-2.1); ALBUMIN 4.6 g/dL (3.5-5.0); BLOOD UREA NITROGEN 13 mg/dL (9-20); CALCIUM 9.5 mg/dl (8.6-10.4); GFR NON-AFRICAN AMERICAN > 60; HDL CHOLESTEROL 47 mg/dL (30-70)
[2018-10-17 20:07] LABS: PROTHROMBIN TIME 11.1 SECONDS (9.7-12.2)
[2018-10-17 20:12] LABS: ALT/SGPT 30 U/L (21-72); AST/SGOT 38 U/L (17-59)
[2018-10-17 20:26] LABS: LDL CHOLESTEROL 91 mg/dL (0-129)
--- NOTE | 2018-10-17 21:41 | CP.PCM.HP ---
Present on Admission - Present on Admission Any Indicators Present on Admission: No Past Patient History - Past Medical History & Family History Past Medical History?: Yes - Past Social History Smoking Status: Never Smoked - CARDIAC Hx Cardiac Disorders: Yes Hx Hypertension: Yes - PULMONARY Hx Respiratory Disorders: No - NEUROLOGICAL Hx Neurological Disorder: No - HEENT Hx HEENT Problems: Yes Hx Glaucoma: Yes - RENAL Hx Chronic Kidney Disease: No - ENDOCRINE/METABOLIC Hx Endocrine Disorders: Yes Hx Diabetes Mellitus Type 2: Yes - HEMATOLOGICAL/ONCOLOGICAL Hx Blood Disorders: No - INTEGUMENTARY Hx Dermatological Problems: No - MUSCULOSKELETAL/RHEUMATOLOGICAL Hx Musculoskeletal Disorders: No - GASTROINTESTINAL Hx Gastrointestinal Disorders: No - GENITOURINARY/GYNECOLOGICAL Hx Genitourinary Disorders: No - PSYCHIATRIC Hx Substance Use: No - SURGICAL HISTORY Hx Surgeries: Yes Hx Musculoskeletal Surgery: Yes (1984 LEFT HIP Fracture) - ANESTHESIA Hx Anesthesia: Yes Hx Anesthesia Reactions: No Hx Malignant Hyperthermia: No Meds Allergies/Adverse Reactions: Allergies Allergy/AdvReac Type Severity Reaction Status Date / Time No Known Allergies Allergy Verified 10/17/18 19:27 Results - Vital Signs Recent Vital Signs: Last Vital Signs Temp 98 F 10/17/18 19:20 Pulse 83 10/17/18 20:15 Resp 18 10/17/18 20:15 BP 156/83 H 10/17/18 20:15 Pulse Ox 100 10/17/18 20:19 - Labs Result Diagrams: 10/17/18 19:45 10/17/18 19:45 Labs: Laboratory Results - last 24 hr 10/17/18 10/17/18 10/17/18 19:45 19:45 19:45 WBC 5.9 RBC 4.69 Hgb 13.8 D Hct 41.4 MCV 88.3 MCH 29.4 MCHC 33.4 RDW 13.0 Plt Count 245 MPV 8.0 Neut % (Auto) 57.5 Lymph % (Auto) 31.3 [place] % (Auto) 7.9 Eos % (Auto) 1.8 Baso % (Auto) 1.5 Neut # (Auto) 3.4 Lymph # (Auto) 1.8 [place] # (Auto) 0.5 Eos # (Auto) 0.1 Baso # (Auto) 0.1 PT 11.1 INR 1.0 APTT 34 Sodium 139 Potassium 4.7 Chloride 103 Carbon Dioxide 27 Anion Gap 14 BUN 13 Creatinine 1.1 Est GFR ( Amer) > 60 Est GFR (Non-Af Amer) > 60 Random Glucose 155 H Hemoglobin A1c Calcium 9.5 Total Bilirubin 0.7 AST 38 ALT 30 Alkaline Phosphatase 47 Troponin I < 0.0120 Total Protein 7.7 Albumin 4.6 Globulin 3.0 Albumin/Globulin Ratio 1.5 Triglycerides 212 H D Cholesterol 162 LDL Cholesterol Direct 91 HDL Cholesterol 47 10/17/18 20:00 WBC RBC Hgb Hct MCV MCH MCHC RDW Plt Count MPV Neut % (Auto) Lymph % (Auto) [place] % (Auto) Eos % (Auto) Baso % (Auto) Neut # (Auto) Lymph # (Auto) [place] # (Auto) Eos # (Auto) Baso # (Auto) PT INR APTT Sodium Potassium Chloride Carbon Dioxide Anion Gap BUN Creatinine Est GFR ( Amer) Est GFR (Non-Af Amer) Random Glucose Hemoglobin A1c 6.9 H Calcium Total Bilirubin AST ALT Alkaline Phosphatase Troponin I Total Protein Albumin Globulin Albumin/Globulin Ratio Triglycerides Cholesterol LDL Cholesterol Direct HDL Cholesterol
[2018-10-17] MEDS: (Novolin R) Insulin Human Regular 100 units/ml vial SC SCH (22:25)
[2018-10-17] MEDS: Sodium Chloride 0.9% 1,000 ML IV SCH (22:26)
--- NOTE | 2018-10-18 04:40 | HP ---
CHIEF COMPLAINT: Tingling and numbness of right side of the face, right arm, and right leg for the last two days. HISTORY OF PRESENT ILLNESS: This is a 68-year-old male with history of diabetes, hypertension, hyperlipidemia, also known case of benign prostatic hyperplasia, and he has prior hip fracture. In his usual status of health, he is ambulatory and independent in activities of daily living. He is compliant with diet, medication, and followup. The patient presented to my office with two days onset of tingling and numbness on the right side of the face, right arm, and occasionally in the right leg. Along with that, he is having headache, and he did blood pressure check at home, and he was found to have high blood pressure. The patient was seen by me. There is a suspicion for TIA. The patient is admitted. He has poor balance, and he is dizzy. He has headache. He denies any chest pain, shortness of breath, palpitation, weakness. He denies any history of polyuria, polydipsia, polyphagia. He denies any history of hematuria, pyuria. He denies any history of sneezing, itchy eyes, or itchy nose. There is no history of trauma, fall, or loss of consciousness. No history of seizure-like activity. PAST MEDICAL HISTORY: Hip fracture, hypertension, diabetes, hyperlipidemia, obstructive uropathy. SOCIAL HISTORY: Nonsmoker and non-EtOH user. CURRENT MEDICATIONS: He is on Flomax, Proscar, metformin. PHYSICAL EXAMINATION: GENERAL: An elderly male, in no acute distress. VITAL SIGNS: Blood pressure is 154/78, pulse 98, respiratory rate 18, temperature 98.3. SKIN: Senile turgor. No bruises. No purpura. No petechia. No ecchymosis. HEENT: Atraumatic and normocephalic. Negative pallor. Negative jaundice. Extraocular movements are intact. NECK: Supple. No JVD. No lymph node. No thyromegaly. CHEST WALL: Bilateral symmetrical expansion. LUNGS: Clear. No rales. No rhonchi. CARDIOVASCULAR SYSTEM: PMI in the fifth intercostal space. S1 and S2, regular. No heave. No thrill. ABDOMEN: Soft, nontender. Bowel sounds are positive. RECTAL: Enlarged prostate. EXTREMITIES: No clubbing, cyanosis or edema. CENTRAL NERVOUS SYSTEM: Awake, alert, oriented x3. Cranial nerves II through XII are normal. Power 5/5 x4. Plantars are downgoing. ASSESSMENT: 1. Transient ischemic attack. Rule out cerebrovascular accident. 2. Hypertension. 3. Type 2 diabetes. 4. Hyperlipidemia. PLAN: Admit. Neuro check. Fall, seizure precautions. Carotid Doppler, MRI, echocardiogram and monitor the patient. Mario Marquez MD
[2018-10-18] MEDS: (Novolin R) Insulin Human Regular 100 units/ml vial SC SCH ×4 (08:21→21:49)
--- NOTE | 2018-10-18 09:17 | CT ---
Date of service: 10/17/2018 PROCEDURE: CT HEAD WITHOUT CONTRAST. HISTORY: Code Stroke COMPARISON: None available. TECHNIQUE: Axial computed tomography images were obtained through the head/brain without intravenous contrast. Radiation dose: Total exam DLP = 869.28 mGy-cm. This CT exam was performed using one or more of the following dose reduction techniques: Automated exposure control, adjustment of the mA and/or kV according to patient size, and/or use of iterative reconstruction technique. FINDINGS: HEMORRHAGE: No intracranial hemorrhage. BRAIN: No mass effect or edema. Scattered focal lucencies in the subcortical and periventricular white matter suggestive for chronic microvascular ischemic change. Punctate left basal ganglia lacunar infarct. Diffuse generalized parenchymal atrophy. VENTRICLES: Unremarkable. No hydrocephalus. CALVARIUM: Unremarkable. PARANASAL SINUSES: Unremarkable as visualized. No significant inflammatory changes. MASTOID AIR CELLS: Unremarkable as visualized. No inflammatory changes. OTHER FINDINGS: None. IMPRESSION: Chronic microvascular ischemic changes. Punctate left basal ganglia lacunar infarct. If symptoms persists, consider correlation with MRI. A preliminary report was generated at 7:50 p.m. on 10/17/[address] James Kumar from [employer].
[2018-10-18] MEDS ORDERED: Losartan 12.5 MG TAB PO SCH (10:00)
--- NOTE | 2018-10-18 10:27 | CP.PCM.CON ---
<Jason Gallegos - Last Filed: 10/18/18 17:01> History of Present Illness - History of Present Illness History of Present Illness: Mr. Santamaria is a 68 year old male with a PMHx of HTN and Diabetes who was sent by his PMD due to 1 week of intermittent episode of right-sided sensory loss and motor weakness. Patient states that 2-3x per day since last Tuesday he would experience these symptoms on right side of his face and his distal right extremities. These symptoms only happen during exertion. He denies any chest pain, SOB, or blurry vision. He does admit to some forehead pressure during these episodes as well. He denies any fever, chills, chest pain, SOB, abdominal pain, nausea, vomiting, changes in bowel habits or urinary symptoms. ROS: As stated above PMHx: HTN, Diabetes PSHx: Left Hip Surgery Allergies: NKDA SocialHx: Denies tobacco use, admits to social EtoH use, denies illicit drug use. Lives at home with his . Retired. preforms all his ADLs/IADL Hos: Only for Hip Surgery FamHx: Denies Meds: Metformin 500 BID, ASA 81 Daily, Losartan 25mg PO Daily Review of Systems - Review of Systems All systems: reviewed and no additional remarkable complaints except (As per HPI) Review of Systems: As Per HPI Past Patient History - Past Medical History & Family History Past Medical History?: Yes - Past Social History Smoking Status: Never Smoked - CARDIAC Hx Cardiac Disorders: Yes Hx Hypertension: Yes - PULMONARY Hx Respiratory Disorders: No - NEUROLOGICAL Hx Neurological Disorder: No - HEENT Hx HEENT Problems: Yes Hx Glaucoma: Yes Other/Comment: wear eyeglasses - RENAL Hx Chronic Kidney Disease: No - ENDOCRINE/METABOLIC Hx Endocrine Disorders: Yes Hx Diabetes Mellitus Type 2: Yes - HEMATOLOGICAL/ONCOLOGICAL Hx Blood Disorders: No - INTEGUMENTARY Hx Dermatological Problems: No - MUSCULOSKELETAL/RHEUMATOLOGICAL Hx Musculoskeletal Disorders: Yes Hx Back Pain: Yes Hx Falls: Yes - GASTROINTESTINAL Hx Gastrointestinal Disorders: No - GENITOURINARY/GYNECOLOGICAL Hx Genitourinary Disorders: No Hx Prostate Problems: Yes (resolved as per pt.) - PSYCHIATRIC Hx Psychophysiologic Disorder: No Hx Substance Use: No - SURGICAL HISTORY Hx Surgeries: Yes Hx Musculoskeletal Surgery: Yes (1985 LEFT HIP Fracture, left hip surgery) - ANESTHESIA Hx Anesthesia: Yes Hx Anesthesia Reactions: No Hx Malignant Hyperthermia: No Has any member of the family had a problem w/ anesthesia?: No Meds Allergies/Adverse Reactions: Allergies Allergy/AdvReac Type Severity Reaction Status Date / Time No Known Allergies Allergy Verified 10/17/18 19:27 - Medications Medications: Current Medications Aspirin (Aspirin) 325 mg PO DAILY [facility] Enoxaparin Sodium (Lovenox) 40 mg SC DAILY [facility] Sodium Chloride (Sodium Chloride 0.9%) 1,000 mls @ 100 mls/hr IV .Q10H [facility] Last Admin: 10/17/18 22:26 Dose: 100 mls/hr Insulin Human Regular (Novolin R) 0 unit SC ACHS [facility]; Protocol Last Admin: 10/18/18 08:21 Dose: Not Given Losartan Potassium (Cozaar) 50 mg PO DAILY [facility] Metformin HCl (Glucophage) 500 mg PO BID [facility] Rosuvastatin Calcium (Crestor) 10 mg PO HS [facility] Last Admin: 10/17/18 22:28 Dose: 10 mg Physical Exam - Constitutional Appears: Well, Non-toxic, No Acute Distress - Eye Exam Eye Exam: EOMI, Normal appearance, PERRL. absent: Scleral icterus - ENT Exam ENT Exam: Mucous Membranes Moist - Neck Exam Neck exam: Negative for: Thyromegaly - Respiratory Exam Respiratory Exam: Clear to Auscultation Bilateral, NORMAL BREATHING PATTERN - Cardiovascular Exam Cardiovascular Exam: RRR, +S1, +S2. absent: JVD Additional comments: No Carotid Bruit B/L - GI/Abdominal Exam GI & Abdominal Exam: Normal Bowel Sounds, Soft. absent: Tenderness - Extremities Exam Extremities exam: Negative for: pedal edema - Neurological Exam Neurological exam: Alert, CN II-XII Intact, Oriented x3, Reflexes Normal - Expanded Neurological Exam Expanded Patient oriented to: person, place, time Speech: Fluid Speech Cranial nerves: EOM's Intact: Normal, Facial Palsey w/Forehead Movement: Normal, Facial Palsey w/o Forehead Movement: Normal, Facial Sensation: Normal, Tongue Deviation: Normal Ataxia: No Upper motor neuron: Babinski Sign: Normal Neuro motor strength exam: Left Upper Extremity: 5, Right Upper Extremity: 5, Left Lower Extremity: 5, Right Lower Extremity: 5 DTR: Patellar Left: 2+, Patellar Right: 2+ Coma Scale Eye Opening: SPONTANEOUS - Psychiatric Exam Psychiatric exam: Normal Affect, Normal Mood - Skin Skin Exam: Dry, Intact, Normal Color, Warm Results - Vital Signs Recent Vital Signs: Last Vital Signs Temp 97.9 F 10/18/18 07:00 Pulse 72 10/18/18 07:38 Resp 20 10/18/18 07:00 BP 176/84 H 10/18/18 07:00 Pulse Ox 97 10/18/18 07:00 - Labs Result Diagrams: 10/17/18 19:45 10/17/18 19:45 Labs: Laboratory Results - last 24 hr 10/17/18 10/17/18 10/17/18 19:45 19:45 19:45 WBC 5.9 RBC 4.69 Hgb 13.8 D Hct 41.4 MCV 88.3 MCH 29.4 MCHC 33.4 RDW 13.0 Plt Count 245 MPV 8.0 Neut % (Auto) 57.5 Lymph % (Auto) 31.3 [place] % (Auto) 7.9 Eos % (Auto) 1.8 Baso % (Auto) 1.5 Neut # (Auto) 3.4 Lymph # (Auto) 1.8 [place] # (Auto) 0.5 Eos # (Auto) 0.1 Baso # (Auto) 0.1 PT 11.1 INR 1.0 APTT 34 Sodium 139 Potassium 4.7 Chloride 103 Carbon Dioxide 27 Anion Gap 14 BUN 13 Creatinine 1.1 Est GFR ( Amer) > 60 Est GFR (Non-Af Amer) > 60 Random Glucose 155 H Hemoglobin A1c Calcium 9.5 Total Bilirubin 0.7 AST 38 ALT 30 Alkaline Phosphatase 47 Troponin I < 0.0120 Total Protein 7.7 Albumin 4.6 Globulin 3.0 Albumin/Globulin Ratio 1.5 Triglycerides 212 H D Cholesterol 162 LDL Cholesterol Direct 91 HDL Cholesterol 47 Blood Type Antibody Screen 10/17/18 10/17/18 20:00 21:33 WBC RBC Hgb Hct MCV MCH MCHC RDW Plt Count MPV Neut % (Auto) Lymph % (Auto) [place] % (Auto) Eos % (Auto) Baso % (Auto) Neut # (Auto) Lymph # (Auto) [place] # (Auto) Eos # (Auto) Baso # (Auto) PT INR APTT Sodium Potassium Chloride Carbon Dioxide Anion Gap BUN Creatinine Est GFR ( Amer) Est GFR (Non-Af Amer) Random Glucose Hemoglobin A1c 6.9 H Calcium Total Bilirubin AST ALT Alkaline Phosphatase Troponin I Total Protein Albumin Globulin Albumin/Globulin Ratio Triglycerides Cholesterol LDL Cholesterol Direct HDL Cholesterol Blood Type AB POSITIVE Antibody Screen Negative Assessment & Plan - Assessment and Plan (Free Text) Assessment: 68 year old male with a PMHx of HTN and Diabetes who was sent by his PMD due to 1 week of intermittent episode of right-sided sensory loss and motor weakness. Cardiology consulted due for evaluation and treatment of TIA. Plan: TIA/HTN EKG (Admission): NSR, no acute ST/T wave changes Head CT (Admission): Chronic microvascular ischemic changes. Punctate left basal ganglia lacunar infarct. If symptoms persists, consider correlation with MRI. Head/Neck CT(Admission): No large vessel occlusion throughout the brain. Widely patent [id number] anatomy is appreciated grossly with trace atherosclerotic plaque bilateral cavernous ICA segments symmetrically. Left dominant vertebrobasilar circulation. Moderate hypoplasia right vertebral catalina ry. No significant stenosis in bilateral common or internal carotid arteries bilaterally with right vertebral hyperplasia appreciated from the origin to the foramen magnum though fully patent Carotid Doppler (Admission): Negative Mgmt: Control BP Inc. Losartan from 25-50 ECHO Stress Test. Patient discussed with Dr. Jaguar Gallegos, PGY-2 <James Montesinos - Last Filed: 10/19/18 05:46> Meds - Medications Medications: Current Medications Aspirin (Aspirin) 325 mg PO DAILY [facility] Last Admin: 10/18/18 11:11 Dose: 325 mg Enoxaparin Sodium (Lovenox) 40 mg SC DAILY [facility] Last Admin: 10/18/18 11:07 Dose: 40 mg Sodium Chloride (Sodium Chloride 0.9%) 1,000 mls @ 100 mls/hr IV .Q10H [facility] Last Admin: 10/18/18 17:46 Dose: Not Given Insulin Human Regular (Novolin R) 0 unit SC ACHS [facility]; Protocol Last Admin: 10/18/18 21:49 Dose: Not Given Losartan Potassium (Cozaar) 50 mg PO DAILY [facility] Last Admin: 10/18/18 11:07 Dose: 50 mg Metformin HCl (Glucophage) 500 mg PO BID [facility] Last Admin: 10/18/18 17:45 Dose: 500 mg Rosuvastatin Calcium (Crestor) 10 mg PO HS [facility] Last Admin: 10/18/18 22:42 Dose: 10 mg Results - Vital Signs Recent Vital Signs: Last Vital Signs Temp 97.9 F 10/18/18 23:45 Pulse 74 10/18/18 23:55 Resp 20 10/18/18 23:45 BP 166/83 H 10/18/18 23:45 Pulse Ox 99 10/18/18 23:45 - Labs Result Diagrams: 10/17/18 19:45 10/17/18 19:45 Labs: Laboratory Results - last 24 hr 10/17/18 10/18/18 10/18/18 19:14 11:05 17:19 POC Glucose (mg/dL) 169 H 131 H 111 H 10/18/18 20:54 POC Glucose (mg/dL) 172 H Assessment & Plan - Assessment and Plan (Free Text) Plan: Patient seen and personally evaluated by me. Plan of care d/w the medical office representative and as documented
--- NOTE | 2018-10-18 10:58 | VASCLAB ---
Date of service: 10/18/2018 PROCEDURE: Carotid Duplex Exam. HISTORY: tia COMPARISON: None available. TECHNIQUE: Grayscale and duplex Doppler evaluation of the cervical carotid and vertebral arteries were performed. The common carotid, carotid bifurcations and cervical Internal Carotid Artery (ICA) and proximal External Carotid Artery (ECA) were evaluated. The vertebral arteries were evaluated for gross patency and flow direction. Report prepared by Martin Garrido, BS, RVT FINDINGS: RIGHT CAROTID ARTERIES: 1. Common Carotid Artery: No significant focal plaque formation of the right common carotid artery. Maximum Peak Systolic velocity: 83 cm/sec: End-diastolic velocity 15 cm/sec. 2. Carotid Bifurcation: plaque formation. Maximum Peak Systolic velocity: 87 cm/sec: End-diastolic velocity 17 cm/sec. 3. Internal Carotid Artery: Plaque description: 3.1. Proximal Segment: Peak systolic velocity 76 cm/sec: End-diastolic velocity 15 cm/sec - % stenosis 0-15% 3.2. Middle Segment: Peak systolic velocity 104 cm/sec: End-diastolic velocity 27 cm/sec - % stenosis 0-15% 3.3. Distal Segment: Peak systolic velocity 70 cm/sec: End-diastolic velocity 18 cm/sec - % stenosis 0-15% 4. External Carotid Artery: No significant focal plaque formation. Peak systolic velocity 136 cm/sec 5. ICA/CCA Ratio: 1.3 LEFT CAROTID ARTERIES: 1. Common Carotid Artery: No significant focal plaque formation of the left common carotid artery. Maximum Peak Systolic velocity: 92 cm/sec: End-diastolic velocity 14 cm/sec. 2. Carotid Bifurcation: plaque formation. Maximum Peak Systolic velocity: 104 cm/sec: End-diastolic velocity 19 cm/sec. 3. Internal Carotid Artery: Plaque description: 3.1. Proximal Segment: Peak systolic velocity 115 cm/sec: End-diastolic velocity 29 cm/sec - % stenosis 0-15% 3.2. Middle Segment: Peak systolic velocity 66 cm/sec: End-diastolic velocity 18 cm/sec - % stenosis 0-15% 3.3. Distal Segment: Peak systolic velocity 66 cm/sec: End-diastolic velocity 16 cm/sec - % stenosis 0-15% 4. External Carotid Artery: No significant focal plaque formation. Peak systolic velocity 171 cm/sec 5. ICA/CCA Ratio: 1.2 VERTEBRAL ARTERIES: 1. Right Vertebral Artery: The right vertebral artery flow direction is antegrade. 2. Left Vertebral Artery: The left vertebral artery flow direction is antegrade. OTHER FINDINGS: 1. Right Brachial Blood pressure: mmHg. 2. Left Brachial Blood pressure: 132 mmHg. 3. No atherosclerotic calcification present IMPRESSION: RIGHT: Duplex scan does not suggest hemodynamically significant stenosis of the right extracranial carotid arteries. LEFT: Duplex scan does not suggest hemodynamically significant stenosis of the left extracranial carotid arteries.
--- NOTE | 2018-10-18 11:00 | CT ---
Date of service: 10/17/2018 PROCEDURE: CT Angiography of the Brain and Neck. HISTORY: r sided paresthisiA COMPARISON: None available. TECHNIQUE: CT angiography of the head and neck was performed following intravenous contrast administration. Coronal and sagittal maximum intensity projection reformatted images were generated. Contrast Dose: Visipaque 320, 100 cc Radiation dose: Total exam DLP = 539.01 mGy-cm. This CT exam was performed using one or more of the following dose reduction techniques: Automated exposure control, adjustment of the mA and/or kV according to patient size, and/or use of iterative reconstruction technique. FINDINGS: INTERNAL CEREBRAL ARTERIES: Note is made of partially calcified atherosclerosis of the bilateral cavernous internal carotid artery segments without significant stenosis. The skull base, petrous, and supraclinoid segments are bilaterally widely patent. ANTERIOR CEREBRAL ARTERIES: Unremarkable. A1 and A2 segments are widely patent. Smaller distal branches unremarkable, as visualized. MIDDLE CEREBRAL ARTERIES: Unremarkable. M1 and M2 segments are widely patent. Perisylvian branches grossly symmetric. POSTERIOR CIRCULATION: Basilar Artery: Unremarkable. Distal Vertebral Arteries: Left dominant vertebrobasilar circulation with hypoplastic intracranial right vertebral artery identified. Posterior Cerebral Arteries: Unremarkable. Posterior Inferior Cerebellar Arteries: Unremarkable. NECK CTA: Aortic Arch: Normal three vessel arch identified. Common Carotid arteries: The bilateral common carotid appear widely patent from their origins to their bifurcations with no significant stenosis appreciated. No evidence to suggest common carotid artery dissection. Internal Carotid arteries: No significant stenosis is appreciated throughout the cervical internal carotid artery segments bilaterally and there is no evidence of dissection either. External Carotid arteries: Appear unremarkable bilaterally. Vertebral arteries: There is hypoplasia of the right vertebral artery with the left vertebral artery widely patent. The right vertebral artery is patent nevertheless. No overt pattern to suggest dissection. ANEURYSM/ VASCULAR MALFORMATIONS: None. OTHER FINDINGS: None. IMPRESSION: No large vessel occlusion throughout the brain. Widely patent heaywh-to-Nupvjc anatomy is appreciated grossly with trace atherosclerotic plaque bilateral cavernous ICA segments symmetrically. Left dominant vertebrobasilar circulation. Moderate hypoplasia right vertebral artery. No significant stenosis in bilateral common or internal carotid arteries bilaterally with right vertebral hyperplasia appreciated from the origin to the foramen magnum though fully patent.
[2018-10-18] MEDS: Enoxaparin 40 mg Syringe SC SCH (11:07)
[2018-10-18] MEDS: Sodium Chloride 0.9% 1,000 ML IV SCH ×2 (11:11→17:46)
--- NOTE | 2018-10-18 11:28 | RAD ---
Date of service: 10/17/2018 HISTORY: Code Stroke COMPARISON: 09/16/2017 TECHNIQUE: 1 view obtained. FINDINGS: LUNGS: No active pulmonary disease. PLEURA: No significant pleural effusion identified, no pneumothorax apparent. CARDIOVASCULAR: No aortic atherosclerotic calcification present. Normal cardiac size. No pulmonary vascular congestion. OSSEOUS STRUCTURES: No significant abnormalities. VISUALIZED UPPER ABDOMEN: Normal. OTHER FINDINGS: None. IMPRESSION: No active disease.
[2018-10-18] MEDS ORDERED: Gadodiamide 287 mg/ml 20 ml IV ONE (12:33)
--- NOTE | 2018-10-18 14:02 | MRI ---
Date of service: 10/18/2018 PROCEDURE: MRI BRAIN WITH AND WITHOUT CONTRAST HISTORY: cva COMPARISON: Brain MRI with and without contrast 11/18/2016 TECHNIQUE: Multiplanar, multisequence MR images of the brain were obtained with and without intravenous contrast enhancement. FINDINGS: HEMORRHAGE: None DWI: No evidence of an acute or early subacute infarction. BRAIN PARENCHYMA: Good corticomedullary differentiation is seen. Proportional, diffuse expansion of the ventriculosulcal and cisternal spaces is appreciated with white matter lucency compatible with diffuse cerebral atrophy and chronic microangiopathy. No suspicious extra-axial fluid collection is identified and the midline brain anatomy appears grossly nonfocal as imaged. There is no mass effect throughout. ENHANCEMENT: No abnormal intracranial enhancement. VENTRICLES: Unremarkable. No hydrocephalus. CRANIUM: Unremarkable. ORBITS: Grossly unremarkable. PARANASAL SINUSES/MASTOIDS: Clear VASCULAR SYSTEM: Skull base flow voids intact. OTHER FINDINGS: None . IMPRESSION: Age-appropriate age related neuro degenerative findings, stable compared prior Brain MRI dated 11/18/2016. No abnormal intracranial enhancement appreciable. No evidence of an acute or subacute brain infarction.
--- NOTE | 2018-10-18 16:24 | CARD ---
APPROVED REPORT Date of service: 10/18/2018 EXAM: Two-dimensional and M-mode echocardiogram with Doppler and color Doppler. Other Information Quality : GoodRhythm : INDICATION CVA/TIA RISK FACTORS Hypertension Diabetes 2D DIMENSIONS IVSd1.3 (0.7-1.1cm)LVDd3.5 (3.9-5.9cm) PWd1.0 (0.7-1.1cm)LA Egmvva00 (18-58mL) LVDs2.2 (2.5-4.0cm)FS (%) 37.2 % LVEF (%)68.2 (>50%)LVEF (Angel's)69.16 % IVC0.00 cm M-Mode DIMENSIONS RVDd2.59 (2.1-3.2cm)Left Atrium (MM)3.39 (2.5-4.0cm) IVSd1.23 (0.7-1.1cm)Aortic Root3.06 (2.2-3.7cm) LVDd3.82 (4.0-5.6cm)Aortic Cusp Exc.2.02 (1.5-2.0cm) PWd1.07 (0.7-1.1cm)FS (%) 46 % LVDs2.06 (2.0-3.8cm)LVEF (%)78 (>50%) Mitral Valve MV E Kgjjfesu36.9cm/sMV A Yhfoirvb900.0cm/sE/A ratio0.8 LUFG176.82 cm/s TDI Lateral E' Peak V8.74cm/sMedial E' Peak V5.38cm/sE/Lateral E'9.3 E/Medial E'15.0 Tricuspid Valve TR Peak Ygepvxuw896rh/sTR Peak Gr.70mcXoUTQK10xmQc LEFT VENTRICLE The left ventricle is normal size. There is normal left ventricular wall thickness. The left ventricular systolic function is normal. The left ventricular ejection fraction is within the normal range. There is normal LV segmental wall motion. Grade I distolic dysfunction - abnormal relaxation pattern. Normal left atrial pressure. RIGHT VENTRICLE The right ventricle is normal size. The right ventricular systolic function is normal. ATRIA The left atrium size is normal. The right atrium size is normal. AORTIC VALVE The aortic valve is normal in structure. No aortic regurgitation is present. There is no aortic valvular stenosis. MITRAL VALVE The mitral valve is normal in structure. Mitral regurgitation is trace. TRICUSPID VALVE The tricuspid valve is normal in structure. There is trace to mild tricuspid regurgitation. Right ventricular systolic pressure is estimated at less than 30 mmHg. PULMONIC VALVE The pulmonary valve is normal in structure. There is trace pulmonic valvular regurgitation. GREAT VESSELS The aortic root is normal in size. The IVC is normal in size and collapses >50% with inspiration. PERICARDIAL EFFUSION There is no pericardial effusion. <Conclusion> The left ventricular systolic function is normal. There is normal LV segmental wall motion. Grade I diastolic dysfunction - abnormal relaxation pattern. Normal left atrial pressure. The right ventricular systolic function is normal. Trace mitral regurgitation. There is trace to mild tricuspid regurgitation. Right ventricular systolic pressure is estimated at less than 30 mmHg. There is no pericardial effusion.
--- NOTE | 2018-10-18 17:09 | CARD ---
APPROVED REPORT Date of service: 10/17/2018 EKG Measurement Heart [id number] <Conclusion> Normal sinus rhythm Normal ECG
--- NOTE | 2018-10-18 18:49 | CP.PCM.CON ---
History of Present Illness - History of Present Illness History of Present Illness: Neuro consult note: Noemy PGY - 2 Reason for consult: R sided weakness/loss of sensation 68 M with a pertinent medical Hx of HTN and Diabetes was sent by his PMD due to several episodes of R sided weakness and loss of sensation since last Tuesday. He states that these symptoms have also been affecting his face from time to time. He denies any slurring speech or loss of consciousness. Of note, he does state that these symptoms have tended to occur more upon exertion than at rest. He denies any chest pain with radiation or shortness of breath. Importantly, he does state that his BP has been uncontrolled recently. ROS: 12 point ROS obtained and negative except as per HPI PMHx: HTN, Diabetes PSHx: Left Hip Surgery Allergies: NKDA SocialHx: Denies tobacco use, admits to social EtoH use, denies illicit drug use FamHx: HTN Meds: Metformin 500 BID, ASA 81 Daily, Losartan 25mg PO Daily Past Patient History - Past Medical History & Family History Past Medical History?: Yes - Past Social History Smoking Status: Never Smoked - CARDIAC Hx Cardiac Disorders: Yes Hx Hypertension: Yes - PULMONARY Hx Respiratory Disorders: No - NEUROLOGICAL Hx Neurological Disorder: No - HEENT Hx HEENT Problems: Yes Hx Glaucoma: Yes Other/Comment: wear eyeglasses - RENAL Hx Chronic Kidney Disease: No - ENDOCRINE/METABOLIC Hx Endocrine Disorders: Yes Hx Diabetes Mellitus Type 2: Yes - HEMATOLOGICAL/ONCOLOGICAL Hx Blood Disorders: No - INTEGUMENTARY Hx Dermatological Problems: No - MUSCULOSKELETAL/RHEUMATOLOGICAL Hx Musculoskeletal Disorders: Yes Hx Back Pain: Yes Hx Falls: Yes - GASTROINTESTINAL Hx Gastrointestinal Disorders: No - GENITOURINARY/GYNECOLOGICAL Hx Genitourinary Disorders: No Hx Prostate Problems: Yes (resolved as per pt.) - PSYCHIATRIC Hx Psychophysiologic Disorder: No Hx Substance Use: No - SURGICAL HISTORY Hx Surgeries: Yes Hx Musculoskeletal Surgery: Yes (1985 LEFT HIP Fracture, left hip surgery) - ANESTHESIA Hx Anesthesia: Yes Hx Anesthesia Reactions: No Hx Malignant Hyperthermia: No Has any member of the family had a problem w/ anesthesia?: No Meds Allergies/Adverse Reactions: Allergies Allergy/AdvReac Type Severity Reaction Status Date / Time No Known Allergies Allergy Verified 10/17/18 19:27 - Medications Medications: Current Medications Aspirin (Aspirin) 325 mg PO DAILY [facility] Last Admin: 10/18/18 11:11 Dose: 325 mg Enoxaparin Sodium (Lovenox) 40 mg SC DAILY [facility] Last Admin: 10/18/18 11:07 Dose: 40 mg Sodium Chloride (Sodium Chloride 0.9%) 1,000 mls @ 100 mls/hr IV .Q10H [facility] Last Admin: 10/18/18 17:46 Dose: Not Given Insulin Human Regular (Novolin R) 0 unit SC ACHS [facility]; Protocol Last Admin: 10/18/18 17:30 Dose: Not Given Losartan Potassium (Cozaar) 50 mg PO DAILY [facility] Last Admin: 10/18/18 11:07 Dose: 50 mg Metformin HCl (Glucophage) 500 mg PO BID [facility] Last Admin: 10/18/18 17:45 Dose: 500 mg Rosuvastatin Calcium (Crestor) 10 mg PO HS [facility] Last Admin: 10/17/18 22:28 Dose: 10 mg Physical Exam - Constitutional Appears: Well - Head Exam Head Exam: ATRAUMATIC, NORMAL INSPECTION, NORMOCEPHALIC - Eye Exam Eye Exam: EOMI, Normal appearance, PERRL Pupil Exam: NORMAL ACCOMODATION, PERRL - ENT Exam ENT Exam: Mucous Membranes Moist, Normal Exam - Neck Exam Neck exam: Positive for: Normal Inspection - Respiratory Exam Respiratory Exam: Clear to Auscultation Bilateral, NORMAL BREATHING PATTERN - Cardiovascular Exam Cardiovascular Exam: REGULAR RHYTHM - GI/Abdominal Exam GI & Abdominal Exam: Normal Bowel Sounds, Soft. absent: Tenderness - Extremities Exam Extremities exam: Positive for: normal inspection - Back Exam Back exam: NORMAL INSPECTION - Neurological Exam Neurological exam: Alert, CN II-XII Intact, Normal Gait, Oriented x3, Reflexes Normal - Psychiatric Exam Psychiatric exam: Normal Affect, Normal Mood Additional comments: Mental status:The patient is alert, attentive, and oriented. Speech is clear and fluent with good repetition, comprehension, and naming. He is able to correctly name 5 fruits. Cranial nerves: CN II - : Intact CN VII: Face is symmetric with normal eye closure and smile. CN VIII: Hearing is normal to rubbing fingers CN IX, X: Palate elevates symmetrically. Phonation is normal. CN XI: Head turning and shoulder shrug are intact CN XII: Tongue is midline with normal movements and no atrophy. Motor: There is no pronator drift of out-stretched arms. Muscle bulk and tone are normal. Muscle strength: on exam with attending, patient showed full 5/5 muscle strength in bilateral upper and lower extremities Reflexes: 2+ b/l UE and LE Sensory:Light touch, pinprick, position sense, and vibration sense are intact in fingers and toes. Coordination: Rapid alternating movements and fine finger movements are intact. There is no dysmetria on dfiqpr-uo-zqcl and tzxk-vhto-bezl. There are no abnormal or extraneous movements. Romberg is absent. Gait/Stance: Posture is normal. Gait is steady with normal steps, base, arm swing, and turning. Heel and toe walking are normal. Tandem gait is normal when the patient closes one of his eyes. - Skin Skin Exam: Dry, Intact, Normal Color, Warm Results - Vital Signs Recent Vital Signs: Last Vital Signs Temp 97.9 F 10/18/18 07:00 Pulse 72 10/18/18 07:38 Resp 20 10/18/18 07:00 BP 176/84 H 10/18/18 07:00 Pulse Ox 97 10/18/18 07:00 - Labs Result Diagrams: 10/17/18 19:45 10/17/18 19:45 Labs: Laboratory Results - last 24 hr 10/17/18 10/17/18 10/17/18 19:14 19:45 19:45 WBC 5.9 RBC 4.69 Hgb 13.8 D Hct 41.4 MCV 88.3 MCH 29.4 MCHC 33.4 RDW 13.0 Plt Count 245 MPV 8.0 Neut % (Auto) 57.5 Lymph % (Auto) 31.3 Prentiss % (Auto) 7.9 Eos % (Auto) 1.8 Baso % (Auto) 1.5 Neut # (Auto) 3.4 Lymph # (Auto) 1.8 Prentiss # (Auto) 0.5 Eos # (Auto) 0.1 Baso # (Auto) 0.1 PT 11.1 INR 1.0 APTT 34 Sodium Potassium Chloride Carbon Dioxide Anion Gap BUN Creatinine Est GFR ( Amer) Est GFR (Non-Af Amer) POC Glucose (mg/dL) 169 H Random Glucose Hemoglobin A1c Calcium Total Bilirubin AST ALT Alkaline Phosphatase Troponin I Total Protein Albumin Globulin Albumin/Globulin Ratio Triglycerides Cholesterol LDL Cholesterol Direct HDL Cholesterol Blood Type Antibody Screen 10/17/18 10/17/18 10/17/18 19:45 20:00 21:33 WBC RBC Hgb Hct MCV MCH MCHC RDW Plt Count MPV Neut % (Auto) Lymph % (Auto) Prentiss % (Auto) Eos % (Auto) Baso % (Auto) Neut # (Auto) Lymph # (Auto) Prentiss # (Auto) Eos # (Auto) Baso # (Auto) PT INR APTT Sodium 139 Potassium 4.7 Chloride 103 Carbon Dioxide 27 Anion Gap 14 BUN 13 Creatinine 1.1 Est GFR ( Amer) > 60 Est GFR (Non-Af Amer) > 60 POC Glucose (mg/dL) Random Glucose 155 H Hemoglobin A1c 6.9 H Calcium 9.5 Total Bilirubin 0.7 AST 38 ALT 30 Alkaline Phosphatase 47 Troponin I < 0.0120 Total Protein 7.7 Albumin 4.6 Globulin 3.0 Albumin/Globulin Ratio 1.5 Triglycerides 212 H D Cholesterol 162 LDL Cholesterol Direct 91 HDL Cholesterol 47 Blood Type AB POSITIVE Antibody Screen Negative 10/18/18 10/18/18 11:05 17:19 WBC RBC Hgb Hct MCV MCH MCHC RDW Plt Count MPV Neut % (Auto) Lymph % (Auto) Prentiss % (Auto) Eos % (Auto) Baso % (Auto) Neut # (Auto) Lymph # (Auto) Prentiss # (Auto) Eos # (Auto) Baso # (Auto) PT INR APTT Sodium Potassium Chloride Carbon Dioxide Anion Gap BUN Creatinine Est GFR ( Amer) Est GFR (Non-Af Amer) POC Glucose (mg/dL) 131 H 111 H Random Glucose Hemoglobin A1c Calcium Total Bilirubin AST ALT Alkaline Phosphatase Troponin I Total Protein Albumin Globulin Albumin/Globulin Ratio Triglycerides Cholesterol LDL Cholesterol Direct HDL Cholesterol Blood Type Antibody Screen Assessment & Plan - Assessment and Plan (Free Text) Assessment: 68 M with pertinent medical history of HTN and DM presents with acute/subacute R sided weakness and sensory loss that also involved the face. Upon exam, however, patient's symptoms appear to have resolved. Of note, CT Head showed positive basal ganglia lacunar infarct, but the MRI brain does not show this, which indicates that the infarct is not acute. Plan Chronic L Sided Basal Ganglia Lacunar Infarct with residual symptomology - Recommend better blood pressure control with home blood pressure cuff - Agree with ASA, Cozaar, and Glycemic control with Metformin (A1C is 6.9, which is higher than previous in 2017, but indicates Metformin is adequate for glycemic control) - Encourage physical activity and PT
--- NOTE | 2018-10-18 20:39 | CP.PCM.PN ---
Subjective - Date & Time of Evaluation Date of Evaluation: 10/18/18 Time of Evaluation: 07:00 - Subjective Subjective: dict Objective - Vital Signs/Intake and Output Vital Signs (last 24 hours): Temp Pulse Resp BP Pulse Ox 97.4 F L 80 18 154/80 H 98 10/18/18 16:00 10/18/18 16:00 10/18/18 16:00 10/18/18 16:00 10/18/18 16:00 - Medications Medications: Current Medications Aspirin (Aspirin) 325 mg PO DAILY [facility] Last Admin: 10/18/18 11:11 Dose: 325 mg Enoxaparin Sodium (Lovenox) 40 mg SC DAILY [facility] Last Admin: 10/18/18 11:07 Dose: 40 mg Sodium Chloride (Sodium Chloride 0.9%) 1,000 mls @ 100 mls/hr IV .Q10H [facility] Last Admin: 10/18/18 17:46 Dose: Not Given Insulin Human Regular (Novolin R) [address] [facility]; Protocol Last Admin: 10/18/18 17:30 Dose: Not Given Losartan Potassium (Cozaar) 50 mg PO DAILY [facility] Last Admin: 10/18/18 11:07 Dose: 50 mg Metformin HCl (Glucophage) 500 mg PO BID [facility] Last Admin: 10/18/18 17:45 Dose: 500 mg Rosuvastatin Calcium (Crestor) 10 mg PO HS [facility] Last Admin: 10/17/18 22:28 Dose: 10 mg - Labs Labs: 10/17/18 19:45 10/17/18 19:45 PT 11.1 SECONDS (9.7-12.2) 10/17/18 19:45 INR 1.0 10/17/18 19:45 APTT 34 SECONDS (21-34) 10/17/18 19:45
[2018-10-19 00:21] VITALS: RESP 20
--- NOTE | 2018-10-19 02:12 | PN ---
DATE: 10/18/2018 SUBJECTIVE: The patient has decreased right-sided facial numbness and arm numbness. His MRI is negative. His blood pressure is high. No fever. No chills. No rigors. No chest pain. PHYSICAL EXAMINATION: VITAL SIGNS: Blood pressure 176/84, pulse 83, respiratory rate 20, temperature 97.9. LUNGS: Clear. CARDIOVASCULAR SYSTEM: S1 and S2, regular. ABDOMEN: Soft. CENTRAL NERVOUS SYSTEM: Awake, alert, oriented x3. Cranial nerves II through XII are normal. Power 5/5 x4. Plantar's are downgoing. ASSESSMENT: 1. Transient ischemic attack, rule out cerebrovascular accident. Cerebrovascular accident has been ruled out. The patient does not have cerebrovascular accident. 2. Poorly controlled hypertension. Start losartan. 3. Type 2 diabetes. 4. Hyperlipidemia. PLAN: See the orders. Mario Marquez MD
[2018-10-19] MEDS ORDERED: Caffeine Citrated **INJ** 20 MG/ML IV ONE (07:40)
[2018-10-19 07:49] VITALS: O2SAT 98
[2018-10-19] MEDS: (Novolin R) Insulin Human Regular 100 units/ml vial SC SCH ×3 (07:52→17:18)
[2018-10-19] MEDS: Enoxaparin 40 mg Syringe SC SCH (10:26)
--- NOTE | 2018-10-19 12:56 | CP.PCM.PN ---
<Jason Gallegos - Last Filed: 10/19/18 16:58> Subjective - Date & Time of Evaluation Date of Evaluation: 10/19/18 Time of Evaluation: 12:49 - Subjective Subjective: Cardiology Progress Note for Dr. Montesinos Patient seen and examined at bedside. No overnight events reported. Patient states he had the symptoms he presented with (Right sided weakness/sensory loss) while they injected the saline for the bubble study. 12 point ROS negative unless stated. Objective - Vital Signs/Intake and Output Vital Signs (last 24 hours): Temp Pulse Resp BP Pulse Ox 97.5 F L 74 20 172/85 H 98 10/19/18 07:10 10/19/18 07:29 10/19/18 07:10 10/19/18 07:10 10/19/18 07:10 Intake and Output: 10/19/18 10/19/18 06:59 18:59 Intake Total 1150 Balance 1150 - Medications Medications: Current Medications Aspirin (Aspirin) 325 mg PO DAILY [facility] Last Admin: 10/19/18 10:26 Dose: Not Given Enoxaparin Sodium (Lovenox) 40 mg SC DAILY [facility] Last Admin: 10/19/18 10:26 Dose: Not Given Insulin Human Regular (Novolin R) 0 unit SC [facility]; Protocol Last Admin: 10/19/18 12:12 Dose: Not Given Losartan Potassium (Cozaar) 50 mg PO DAILY [facility] Last Admin: 10/19/18 10:26 Dose: Not Given Metformin HCl (Glucophage) 500 mg PO BID [facility] Last Admin: 10/19/18 10:26 Dose: Not Given Rosuvastatin Calcium (Crestor) 10 mg PO HS [facility] Last Admin: 10/18/18 22:42 Dose: 10 mg - Labs Labs: 10/17/18 19:45 10/17/18 19:45 PT 11.1 SECONDS (9.7-12.2) 10/17/18 19:45 INR 1.0 10/17/18 19:45 APTT 34 SECONDS (21-34) 10/17/18 19:45 - Additional Findings Additional findings: - Constitutional Appears: Well, Non-toxic, No Acute Distress - Eye Exam Eye Exam: EOMI, Normal appearance, PERRL. absent: Scleral icterus - ENT Exam ENT Exam: Mucous Membranes Moist - Neck Exam Neck exam: Negative for: Thyromegaly - Respiratory Exam Respiratory Exam: Clear to Auscultation Bilateral, NORMAL BREATHING PATTERN - Cardiovascular Exam Cardiovascular Exam: RRR, +S1, +S2. absent: JVD Additional comments: No Carotid Bruit B/L - GI/Abdominal Exam GI & Abdominal Exam: Normal Bowel Sounds, Soft. absent: Tenderness - Extremities Exam Extremities exam: Negative for: pedal edema - Neurological Exam Neurological exam: Alert, CN II-XII Intact, Oriented x3, Reflexes Normal - Expanded Neurological Exam Expanded Patient oriented to: person, place, time Speech: Fluid Speech Cranial nerves: EOM's Intact: Normal, Facial Palsey w/Forehead Movement: Normal, Facial Palsey w/o Forehead Movement: Normal, Facial Sensation: Normal, Tongue Deviation: Normal Ataxia: No Upper motor neuron: Babinski Sign: Normal Neuro motor strength exam: Left Upper Extremity: 5, Right Upper Extremity: 5, Left Lower Extremity: 5, Right Lower Extremity: 5 DTR: Patellar Left: 2+, Patellar Right: 2+ Coma Scale Eye Opening: SPONTANEOUS - Psychiatric Exam Psychiatric exam: Normal Affect, Normal Mood - Skin Skin Exam: Dry, Intact, Normal Color, Warm Assessment and Plan - Assessment and Plan (Free Text) Assessment: 68 year old male with a PMHx of HTN and Diabetes who was sent by his PMD due to 1 week of intermittent episode of right-sided sensory loss and motor weakness. Cardiology consulted due for evaluation and treatment of TIA. Plan: EKG (Admission): NSR, no acute ST/T wave changes Head CT (Admission): Chronic microvascular ischemic changes. Punctate left basal ganglia lacunar infarct. If symptoms persists, consider correlation with MRI. Head/Neck CT(Admission): No large vessel occlusion throughout the brain. Widely patent [id number] anatomy is appreciated grossly with trace atherosclerotic plaque bilateral cavernous ICA segments symmetrically. Left dominant vertebrobasilar circulation. Moderate hypoplasia right vertebral artery. No significant stenosis in bilateral common or internal carotid arteries bilaterally with right vertebral hyperplasia appreciated from the origin to the foramen magnum though fully patent Carotid Doppler (Admission): Negative MRI (10/18/18): Acutely NEGATIVE. ECHO: Grade 1 diastolic dysfunction, trace MR Stress Test: Normal ECHO w/ Bubble: No intracardiac Shunt. Mgmt: Control BP control Cont. Losartan 50 Daily. Dispo: No Cardioembolic source. Will continue to follow with Neuro. Patient discussed with Dr. Jaguar Gallegos, PGY-2 <James Montesinos - Last Filed: 10/19/18 22:30> Objective - Vital Signs/Intake and Output Vital Signs (last 24 hours): Temp Pulse Resp BP Pulse Ox 98.0 F 70 20 145/68 98 10/19/18 15:33 10/19/18 16:13 10/19/18 15:33 10/19/18 15:33 10/19/18 15:33 - Labs Labs: 10/17/18 19:45 10/17/18 19:45 PT 11.1 SECONDS (9.7-12.2) 10/17/18 19:45 INR 1.0 10/17/18 19:45 APTT 34 SECONDS (21-34) 10/17/18 19:45 Assessment and Plan - Assessment and Plan (Free Text) Plan: Patient seen and evaluated personally by me. Plan of care d/w the resident and as documented
--- NOTE | 2018-10-19 14:31 | CP.PCM.PN ---
Subjective - Date & Time of Evaluation Date of Evaluation: 10/19/18 Time of Evaluation: 14:28 - Subjective Subjective: Neuro Follow-Up Note: Mr. Scott was evaluated this afternoon at bedside. He is post- stress test today with cardiology. Pt states that he is feeling better; denies recurrent right facial and right extremities weakness. Offers no new complaints; eager to be d/c home. Denies h/a, dizziness, visual changes, chest pain, palpitations, sob, cough, abd pain, n/v/d, fever/chills, paresthesias. Objective - Vital Signs/Intake and Output Vital Signs (last 24 hours): Temp Pulse Resp BP Pulse Ox 97.5 F L 74 20 172/85 H 98 10/19/18 07:10 10/19/18 07:29 10/19/18 07:10 10/19/18 07:10 10/19/18 07:10 Intake and Output: 10/19/18 10/19/18 06:59 18:59 Intake Total 1150 Balance 1150 - Medications Medications: Current Medications Aspirin (Aspirin) 325 mg PO DAILY [facility] Last Admin: 10/19/18 10:26 Dose: Not Given Enoxaparin Sodium (Lovenox) 40 mg SC DAILY [facility] Last Admin: 10/19/18 10:26 Dose: Not Given Insulin Human Regular (Novolin R) 0 unit SC [facility]; Protocol Last Admin: 10/19/18 12:12 Dose: Not Given Losartan Potassium (Cozaar) 50 mg PO DAILY [facility] Last Admin: 10/19/18 10:26 Dose: Not Given Metformin HCl (Glucophage) 500 mg PO BID [facility] Last Admin: 10/19/18 10:26 Dose: Not Given Rosuvastatin Calcium (Crestor) 10 mg PO [facility] Last Admin: 10/18/18 22:42 Dose: 10 mg - Labs Labs: 10/17/18 19:45 10/17/18 19:45 PT 11.1 SECONDS (9.7-12.2) 10/17/18 19:45 INR 1.0 10/17/18 19:45 APTT 34 SECONDS (21-34) 10/17/18 19:45 - Constitutional Appears: Well, Non-toxic, No Acute Distress - Head Exam Head Exam: ATRAUMATIC, NORMAL INSPECTION, NORMOCEPHALIC - Eye Exam Eye Exam: EOMI, Normal appearance, PERRL Pupil Exam: NORMAL ACCOMODATION, PERRL - ENT Exam ENT Exam: Mucous Membranes Moist - Neck Exam Neck Exam: Full ROM, Normal Inspection - Respiratory Exam Respiratory Exam: NORMAL BREATHING PATTERN - Cardiovascular Exam Cardiovascular Exam: REGULAR RHYTHM - Extremities Exam Extremities Exam: Full ROM, Normal Inspection. absent: Calf Tenderness, Pedal Edema - Neurological Exam Neurological Exam: Alert, Awake, CN II-XII Intact, Oriented x3, Reflexes Normal Neuro motor strength exam: Left Upper Extremity: 5 (distal 5/5), Right Upper Extremity: 5 (distal 5/5), Left Lower Extremity: 5 (distal 5/5), Right Lower Extremity: 5 (distal 5/5) Additional comments: Speech clear, fluid FROM to all extremities; no focal motor deficits. No dysmetria b/l. No sensory deficits. No tremors or abnormal movements. - Psychiatric Exam Psychiatric exam: Normal Affect, Normal Mood - Skin Skin Exam: Normal Color Assessment and Plan (1) Paresthesia Assessment & Plan: Imaging reviewed: -MRI Brain (10/18/18): Age-appropriate age related neuro degenerative findings, stable compared prior Brain MRI dated 11/18/2016. No abnormal intracranial enhancement appreciable. No evidence of an acute or subacute brain infarction. -ECHO (10/16/18): EF within normal range -CTA Head and Neck (10/17/18): No large vessel occlusion throughout the brain. Widely patent [id number] anatomy is appreciated grossly with trace atherosclerotic plaque bilateral cavernous ICA segments symmetrically. Left dominant vertebrobasilar circulation. Moderate hypoplasia right vertebral a rtery. No significant stenosis in bilateral common or internal carotid arteries bilaterally with right vertebral hyperplasia appreciated from the origin to the foramen magnum though fully patent. -CT Head (): Chronic microvascular ischemic changes. Punctate left basal ganglia lacunar infarct. If symptoms persists, consider correlation with MRI. -Upon d/c may continue ASA 81 mg PO Daily and statin. -Continue BP control and secondary stroke prevention measures. -Continue cardiac w/u per cardiology. -Notify neuro team of any acute changes in condition. Please reconsult prn. May follow up with neuro as outpatient. Thank you for this consultation. Neyda Hayes, DNP, ASSET ACCOUNTANT d/w Dr. Reeves Status: Acute
[2018-10-19 16:15] VITALS: PULSE 70
--- NOTE | 2018-10-19 16:15 | CP.PCM.PN ---
Subjective - Date & Time of Evaluation Date of Evaluation: 10/19/18 Time of Evaluation: 14:00 - Subjective Subjective: patient seen today, denies any chest pain, son, dizziness, weakness/ numbness or tinglinngs to the extremities oob ambulating the hallway without any problems vss and labs reviewed- stable s/p stress test - official result pending Objective - Vital Signs/Intake and Output Vital Signs (last 24 hours): Temp Pulse Resp BP Pulse Ox 97.5 F L 74 20 172/85 H 98 10/19/18 07:10 10/19/18 07:29 10/19/18 07:10 10/19/18 07:10 10/19/18 07:10 Intake and Output: 10/19/18 10/19/18 06:59 18:59 Intake Total 1150 Balance 1150 - Medications Medications: Current Medications Aspirin (Aspirin) 325 mg PO DAILY [facility] Last Admin: 10/19/18 10:26 Dose: Not Given Enoxaparin Sodium (Lovenox) 40 mg SC DAILY [facility] Last Admin: 10/19/18 10:26 Dose: Not Given Insulin Human Regular (Novolin R) 0 unit SC [facility]; Protocol Last Admin: 10/19/18 12:12 Dose: Not Given Losartan Potassium (Cozaar) 50 mg PO DAILY [facility] Last Admin: 10/19/18 10:26 Dose: Not Given Metformin HCl (Glucophage) 500 mg PO BID [facility] Last Admin: 10/19/18 10:26 Dose: Not Given Rosuvastatin Calcium (Crestor) 10 mg PO [facility] Last Admin: 10/18/18 22:42 Dose: 10 mg - Labs Labs: 10/17/18 19:45 10/17/18 19:45 PT 11.1 SECONDS (9.7-12.2) 10/17/18 19:45 INR 1.0 10/17/18 19:45 APTT 34 SECONDS (21-34) 10/17/18 19:45 Assessment and Plan - Assessment and Plan (Free Text) Assessment: A/P 68 year old male with PMHx of diabetes,HTN presents to the ED from Dr. Marquez office for evaluation of c/o intermittent numbness over right leg, right arm and right sided face that started on Tuesday MRI- Age-appropriate age related neuro degenerative findings, stable compared prior Brain MRI dated 11/18/2016. No abnormal intracranial enhancement appreciable. No evidence of an acute or subacute brain infarction. patient symptoms resolved neurology consulted and recommends to continue aspirin and statin s/p STRESS TEST TODAY - official result pending D/w Dr. marquez, cleared for discharge home today and f/u with Dr. Shauna nunez 1 week Discharge plan discussed with patient , who understands and agrees with plan patient instructed to returns to ED if symptoms returns
[2018-10-19 16:34] VITALS: BP 145/68; TEMP 98
--- NOTE | 2018-10-19 16:56 | CARD ---
APPROVED REPORT Date of service: 10/19/2018 Protocol: LEXISCAN Test Type: LEXISCAN STRESS Test Indications: CP Medical History: CP Target HR: 152 bpm Resting ECG: NSR Resting Heart Rate: 82 bpm Resting Blood Pressure: 140/80mmHg submaximum (85%): 129 bpm TEST SUMMARY PREINFSNHYPERV.24:[id number]/80.0. INFUSIONDOSE 100:300.00.01.087/.0. [id number]/80.0. PROCEDURE Pharmacologic stress testing was performed using 0.4mg per 5ml of regadenoson given intravenously over 7-10 seconds. POST EXERCISE Reason for Termination: Protocol Completed Target HR: No Max HR: 87 bpm 63% of Maximum Predicted HR: 152 bpm Exercise duration: 00:30 min:sec, 0 Stage Exercise capacity: 1.0METs Max Blood Pressure: 140/80mmHg Blood Pressure response to exercise: normal resting BP - appropriate response Heart Rate response to exercise: appropriate Chest Pain: No, none Angina index: 0 Arrhythmia: No, none ST Change: No, none Deviation: 0 mm INTERPRETATION Stress EKG Conclusion: NEGATIVE LEXISCAN STRESS TEST NORMAL BP RESPONSE TO LEXISCAN NUCLEAR STUDIES TO BE READ SEPARATELY EXAM: Myocardial Perfusion REST/STRESS Imaging Protocol The imaging protocol used to acquire images was Rest Tc-99m/stress Tc-99m 1 day Rest Spect myocardial perfusion imaging was performed in supine position 45 minutes following the injection of 12.4 mCi of Tc-99 Myoview. Gated Stress Spect was performed 45 minutes after intravenous 32.4 mCi Tc-99 Myoview injection. The images were gated to evaluate regional wall motion and calculate ventricular ejection fraction.Images were reconstructed using backfilter projection method in short horizontal and verticle long axis. Spect slices were generated. RESTING DATA EDV47.55mkNF3.90L/min ESV9.00mlMyocardial Mass88.00g Av. Heart Rate76.00bpm EF81.00% STRESS DATA EDV61.07eyKT1.10L/min ESV8.00mlMyocardial Qqgw254.00g EF87.00% Regional WT score at stress:0.00 Regional WM score at stress:0.00 Summed WT score at stress:0.00 Av. Heart Rate78.00bpmSummed WM score at stress:0.00 LV Perf. Quant 17 Seg. SSS0.00 17 Seg. SRS0.00 17 Seg. SDS0.00 Stress Defect Extent (% LAD)0.00Rest Defect Extent (% LAD)0.00Rev. Defect Extent (% LAD)0.00 Stress Defect Extent (% LCX)7.50Rest Defect Extent (% LCX)13.80Rev. Defect Extent (% LCX)0.00 Stress Defect Extent (% RCA)0.00Rest Defect Extent (% RCA)0.00Rev. Defect Extent (% RCA)0.00 Stress Defect Extent (% TRISTEN)1.30Rest Defect Extent (% TRISTEN)2.40Rev. Defect Extent (% TRISTEN)0.00 IMPRESSION Normal Myocardial Perfusion exercise stress study Left Ventricle LV Function:Left ventricle systolic function is normal. The Ejection Fraction is >70%. Metabolism/Perfusion Defects: There is no stress-induced ischemia noted. There are no defects. There are no perfusion/metabolism defects. Conclusion 1. There is no stress-induced ischemia noted. 2. Left ventricle systolic function is normal. 3. The Ejection Fraction is >70%.
--- NOTE | 2018-10-19 21:18 | CARD ---
APPROVED REPORT Date of service: 10/19/2018 EXAM: LIMITED Two-dimensional echocardiogram with saline bubbles. INDICATION CVA/TIA R/O cardiac shunt Echo Enhancing Agent Indication: Rule Out Septal Defect Agent/Amount Used: Agitated Saline LEFT VENTRICLE The left ventricle is normal size. There is normal left ventricular wall thickness. Left ventricle systolic function is normal. The Ejection Fraction is 65-70%. RIGHT VENTRICLE The right ventricle is normal size. The right ventricular systolic function is normal. ATRIA The left atrium size is normal. The right atrium size is normal. The interatrial septum is intact with no evidence for an intracardiac R to L Shunt. using Buble study. <Conclusion> The interatrial septum is intact with no evidence for an intracardiac R to L Shunt. using Buble study.
--- NOTE | 2018-10-19 22:34 | CP.PCM.DIS ---
Provider - Provider Date of Admission: 10/17/18 20:16 Attending physician: Mario Marquez MD Consults: 10/17/18 19:27 Stroke Team Consult Stat Comment: TIA Consulting Provider: Neurohospitalist Consulting Physician: NEUROHOSP Neurohospitalist for Consult: Bam Dupree Neurohospitalist for Consult: Panfilo Reeves Reason for Consult: TIA 10/17/18 21:36 Cardiology Consult Routine Comment: Consulting Provider: James Montesinos Consulting Physician: James Montesinos Reason for Consult: tia Time Spent in preparation of Discharge (in minutes): 30 Hospital Course - Lab Results Lab Results: Most Recent Lab Values WBC 5.9 K/uL (4.8-10.8) 10/17/18 19:45 RBC 4.69 Mil/uL (4.40-5.90) 10/17/18 19:45 Hgb 13.8 g/dL (12.0-18.0) D 10/17/18 19:45 Hct 41.4 % (35.0-51.0) 10/17/18 19:45 MCV 88.3 fL (80.0-94.0) 10/17/18 19:45 MCH 29.4 pg (27.0-31.0) 10/17/18 19:45 MCHC 33.4 g/dL (33.0-37.0) 10/17/18 19:45 RDW 13.0 % (11.5-14.5) 10/17/18 19:45 Plt Count 245 K/uL (130-400) 10/17/18 19:45 MPV 8.0 fL (7.2-11.7) 10/17/18 19:45 Neut % (Auto) 57.5 % (50.0-75.0) 10/17/18 19:45 Lymph % (Auto) 31.3 % (20.0-40.0) 10/17/18 19:45 Dodge % (Auto) 7.9 % (0.0-10.0) 10/17/18 19:45 Eos % (Auto) 1.8 % (0.0-4.0) 10/17/18 19:45 Baso % (Auto) 1.5 % (0.0-2.0) 10/17/18 19:45 Neut # (Auto) 3.4 K/uL (1.8-7.0) 10/17/18 19:45 Lymph # (Auto) 1.8 K/uL (1.0-4.3) 10/17/18 19:45 Dodge # (Auto) 0.5 K/uL (0.0-0.8) 10/17/18 19:45 Eos # (Auto) 0.1 K/uL (0.0-0.7) 10/17/18 19:45 Baso # (Auto) 0.1 K/uL (0.0-0.2) 10/17/18 19:45 PT 11.1 SECONDS (9.7-12.2) 10/17/18 19:45 INR 1.0 10/17/18 19:45 APTT 34 SECONDS (21-34) 10/17/18 19:45 Sodium 139 mmol/L (132-148) 10/17/18 19:45 Potassium 4.7 mmol/L (3.6-5.2) 10/17/18 19:45 Chloride 103 mmol/L (98-107) 10/17/18 19:45 Carbon Dioxide 27 mmol/L (22-30) 10/17/18 19:45 Anion Gap 14 (10-20) 10/17/18 19:45 BUN 13 mg/dL (9-20) 10/17/18 19:45 Creatinine 1.1 mg/dL (0.8-1.5) 10/17/18 19:45 Est GFR ( Amer) > 60 10/17/18 19:45 Est GFR (Non-Af Amer) > 60 10/17/18 19:45 POC Glucose (mg/dL) 107 mg/dL (65-110) 10/19/18 16:23 Random Glucose 155 mg/dL (75-110) H 10/17/18 19:45 Hemoglobin A1c 6.9 % (4.2-6.5) H 10/17/18 20:00 Calcium 9.5 mg/dl (8.6-10.4) 10/17/18 19:45 Total Bilirubin 0.7 mg/dL (0.2-1.3) 10/17/18 19:45 AST 38 U/L (17-59) 10/17/18 19:45 ALT 30 U/L (21-72) 10/17/18 19:45 Alkaline Phosphatase 47 U/L (38-126) 10/17/18 19:45 Troponin I < 0.0120 ng/mL (0.00-0.120) 10/17/18 19:45 Total Protein 7.7 g/dL (6.3-8.3) 10/17/18 19:45 Albumin 4.6 g/dL (3.5-5.0) 10/17/18 19:45 Globulin 3.0 gm/dL (2.2-3.9) 10/17/18 19:45 Albumin/Globulin Ratio 1.5 (1.0-2.1) 10/17/18 19:45 Triglycerides 212 mg/dL (0-149) H D 10/17/18 19:45 Cholesterol 162 mg/dL (0-199) 10/17/18 19:45 LDL Cholesterol Direct 91 mg/dL (0-129) 10/17/18 19:45 HDL Cholesterol 47 mg/dL (30-70) 10/17/18 19:45 Blood Type AB POSITIVE 10/17/18 21:33 Antibody Screen Negative 10/17/18 21:33 Discharge Exam - Head Exam Head Exam: ATRAUMATIC, NORMAL INSPECTION, NORMOCEPHALIC Discharge Plan - Discharge Medications Prescriptions: Aspirin 325 mg PO DAILY #30 tab Losartan [Cozaar] 50 mg PO DAILY #30 tab Rosuvastatin Calcium [Crestor] 10 mg PO HS #30 tab - Follow Up Plan Condition: GUARDED Disposition: HOME/ ROUTINE Instructions: Heart Healthy Diet, Transient Ischemic Attack (DC), Paresthesias (DC), Aspirin, Losartan, Rosuvastatin Additional Instructions: Please follow up with Dr. Marquez office in 1 week Please continue medication as per med. rec. Please pharmacy picking technician medication from [facility] pharmacy Referrals: Bam Dupree MD [Staff Provider] - Mario Marquez MD [Staff Provider] -
--- NOTE | 2018-10-20 06:11 | DS ---
DISCHARGE DIAGNOSES: 1. Transient ischemic attack. 2. Hypertension. 3. Diabetes. 4. Hyperlipidemia. 5. Osteoarthritis. HISTORY OF PRESENT ILLNESS AND HOSPITAL COURSE: This is a 68-year-old [place]ian male with history of diabetes, hypertension, hyperlipidemia, osteoarthritis with prior hip fracture who came in because of numbness and tingling on the right side of the face, extending to the arm. The patient had TIA and MRI. The patient did well. His sugars remained stable. He underwent carotid Doppler which is negative, and his echocardiogram shows normal LV function and no right to left shunt. The patient is feeling better. The patient is for discharge. The patient will be followed up by Dr. Montesinos as outpatient. CONDITION UPON DISCHARGE: Stable. Mario Marquez MD [facility] # [id number]
== END 2018-10-19 18:15 | disposition home or self-care (01) | DRG 69 ==
LOC: C.ER 19:05 → C.6T 20:16
PROVIDERS: ADMIT Internal Medicine; ATTEND Internal Medicine
DX: G45.9 Transient cerebral ischemic attack, unspecified (principal); M19.90 Unspecified osteoarthritis, unspecified site; I10 Essential (primary) hypertension; H40.9 Unspecified glaucoma; E78.5 Hyperlipidemia, unspecified; E11.9 Type 2 diabetes mellitus without complications; Z87.81 Personal history of (healed) traumatic fracture; N40.0 Benign prostatic hyperplasia without lower urinary tract symptoms; I65.29 Occlusion and stenosis of unspecified carotid artery